=== PATIENT | female | born 1960 | race Caucasian/White ===

== ENCOUNTER 2019-02-24 06:46 | Emergency (ER) | payer MEDICARE, MEDICAID, SELFPAY | END 2019-02-24 09:34 | disposition home or self-care (01) | PROVIDERS: Emergency Provider Family Medicine; Family Provider Nurse Practitioner Family; Visit Provider Family Medicine | DX: N13.2 Hydronephrosis with renal and ureteral calculous obstruction (principal); Z88.0 Allergy status to penicillin | CPT/HCPCS: 36415; 71045; 74176; 80053; 96361; 96374; 96375; 99284; J2270; J2405 ==

== ENCOUNTER 2020-10-13 12:57 | Outpatient (CLI) | payer MEDICARE, MEDICAID, SELFPAY ==
--- NOTE | 2020-10-13 21:12 | ONC CON_ITS ---
Dr. Lemon New Patient Note Patient: Dolly Mandel Unit #: [id number]: 1960 Dicatated By: Parmjit Lemon M.D.Date of Visit: Oct 13, 2020 Onc MED New Patient/Consult Referring Physician: Katelyn Drew Chief Complaint: Breast cancer. History of Present Illness: This is a 60 year-old woman with grade 3 invasive ductal carcinoma of the left breast, by clinical evaluation stage IIA (T2, N0, M0), ER negative/MD positive and HER-2/santa positive. 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 At this point she has some residual function of her forearms and hands, but she is otherwise paraplegic. She required tracheostomy placement in 1997. She had recently been found by her primary care provider to have a palpable mass in the left breast. Ultrasound of the left breast on on 09/14/2020 showed an irregular hypoechoic mass at the 12:00 axis of the left breast 5 cm from the nipple. It correlated with the palpable lump. It measured approximately 2.1 x 2.0 x 2.0 cm and was noted to extend towards the skin surface. The findings were BI-RADS 4, suspicious. On 09/29/2019 when she underwent ultrasound directed biopsy of the left breast. Pathology showed grade 3 invasive ductal carcinoma. The breast prognostic profile showed ER negative at 0% and MD positive at 21%. HER-2/santa was 2+ by IHC. It was positive by FISH with amplification ratio 2.1 and with an average of 5.2 HER-2 copies/cell. She had surgical oncology consultation with Dr. Hardik Peoples on 10/05/2020. At that time she indicated that she was not interested in breast conservation management. She is seen now in regard to recommendations for systemic therapy. Lately she has been feeling more tired than usual. She has very limited activity due to the muscular dystrophy. Her ECOG score is 3. Her appetite has not been good. She says that for the past couple of months nothing as tasted right, and she has been having early satiety. Her weight, though, has been stable. She sometimes has fever. She says it goes up and down. She has some hot flashes and sweating. She tends to feel cold most of the time. She has a little sinus drainage. She has cough associated with suctioning of her tracheostomy. She does not complain of shortness of breath or chest pain. She has no GI or complaints. She does have a history of kidney stones. She says her left leg hurts sometimes. She has no other joint or bone pain. She does not complain of headache or dizziness. She has a little bit of numbness in her hands. She has anxiety/depression. She has medication for it, but she prefers not to take it. Past Medical History: Her medical history includes depression, gastroesophageal reflux disease, history of nephrolithiasis, and muscular dystrophy with paraplegia and ventilator dependent respiratory failure. Past Surgical History: Her surgical/procedural history includes colonoscopy, gastrostomy tube placement and removal, tracheostomy, tubal ligation, ultrasound directed biopsy of the left breast in 2020, and tracheostomy placement in 1997. Medications: traMADol HCl 1 Each (of 50 mg) Tablet Oral four times a day PRN Allergies: Acetaminophen, Amoxicillin, Nitrofurantoin Macrocrystal, [id number], and Silk Tape. Social History: Ms. Mandel is . She is a non-smoker. She does not drink alcohol. Family History: Father age 72 with colon and lung cancer. Mother had diabetes. She at age 96. A brother of pancreatic cancer in his 60s. A sister was treated for breast cancer in 1977. She is currently alive without recurrence at age 75. Review Of Symptoms: Constitutional - She has been feeling tired. She has very limited activity due to her muscular dystrophy. Appetite is not good but her weight is stable. She sometimes has fever. She has some hot flashes and sweating. She tends to feel cold. ECOG score is 3, Eyes - No change in vision, ENMT - No hearing loss or tinnitus. She has a little sinus drainage. No mouth sores. No sore throat. She has difficulty swallowing pills, Hematologic/Lymphatic - No abnormal bruising or bleeding, Respiratory - No shortness of breath. She has cough associated with suctioning her trach. No pleuritic pain or hemoptysis, Cardiovascular - No angina pain. No palpitations, Gastrointestinal - No nausea or vomiting. No heartburn or acid reflux. No diarrhea or constipation. No blood in the stool or black stools, Genitourinary (F) - No dysuria or hematuria. No urinary frequency. No urgency or incontinence, Musculoskeletal - She sometimes has pain in her left leg, Integumentary - No skin rash or other skin problems, Neurologic - No headache or dizziness. She has a little bit of numbness in her hands. No other focal neurologic symptoms. She has weakness due to the muscular dystrophy. She is nonambulatory, Psychiatric - She has anxiety/depression. She does not sleep well. Vital Signs: Performed on Oct 13, 2020 14:00: 5, 0, 20.01, 1.63 sq.m, 66 in, 100 %, 60 /min, 16 /min, 128/72 mm(hg), 98.1 F (LOW), and 124 lbs (HIGH). Physical Examination: Constitutional - She has weakness and she has very limited mobility, Eyes - Sclerae nonicteric. Conjunctivae clear, ENMT - No lesions noted in the oral cavity, Neck - No mass or thyromegaly, Hematologic/Lymphatic - No cervical or clavicular adenopathy, Respiratory - Lungs sound clear. She has limited air movement bilaterally, Cardiovascular - Heart rhythm is regular. There is no murmur, gallop, or rub noted, Breasts - The right breast shows no mass. There is large area of mas/induration in the superior and lateral left breast. There is no axillary adenopathy, Abdomen - Mildly distended but soft. Liver and spleen are not enlarged. There is no abdominal mass or ascites noted and there is no inguinal adenopathy, Extremities - No edema. Pedal pulses are palpable bilaterally, Integumentary - No rashes. No suspicious skin lesions noted, Neurologic - She has almost complete paraplegia with exception of some residual movement in both forearms and hands. Problem List: 1. Grade 3 invasive ductal carcinoma of the left breast, by clinical evaluation stage IIA (T2, N0, M0), ER negative/MD positive and HER-2/santa positive. 2. 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 3. History of nephrolithiasis. 4. Anxiety/depression. 5. Her family history is positive for breast cancer, pancreatic cancer, and colon cancer affecting first-degree relatives, and she is at risk for a transfer to BRCA related cancer. Problems Addressed with this Encounter and Plan: 1. Patient with grade 3 invasive ductal carcinoma of the left breast, by clinical evaluation stage IIA (T2, N0, M0), ER negative/MD positive and HER-2/santa positive. She had presented with a palpable mass in the left breast. The diagnosis was confirmed by ultrasound directed biopsy on 10/05/2020. She has indicated that she is not interested in breast conservation. Her further management is complicated by the underlying muscular dystrophy, which does carry some increased risks for chemotherapy related toxicity, particularly the potential neurotoxicity with a taxane-based chemotherapy. By clinical evaluation, she would just barely meet criteria for neoadjuvant chemotherapy, based on the primary tumor measuring over 2 cm. In her particular situation, I would favor proceeding directly to mastectomy with axillary sentinel biopsy, as that would provide accurate staging and potentially reduce her exposure to systemic therapy. In particular, if she is node negative, we may consider limiting her adjuvant therapy to HER-2/santa targeted therapy/endocrine therapy combination and avoid chemotherapy altogether. If she does require chemotherapy, I would limited it to weekly taxane/Herceptin or perhaps even Xeloda/Herceptin. However, I am going to first confer with one of the breast cancer specialists at [facility], and I will have her seen there for second opinion, as deemed appropriate. 2. She is at risk for having BRCA related cancer. She has indicated that she does not want genetic testing, as she does not have children. However, as it would potentially make her eligible for adjuvant therapy with a PARP inhibitor, I encouraged to reconsider it. Signed By: Parmjit Lemon M.D. <<Signature on File>>
== END 2020-10-13 12:58 | disposition home or self-care (01) ==
LOC: ONCMED 13:08
PROVIDERS: PCP Nurse Practitioner Family; Visit Provider Internal Medicine Medical Oncology
DX: C50.812 Malignant neoplasm of overlapping sites of left female breast (principal); Z17.1 Estrogen receptor negative status [ER-]; G82.21 Paraplegia, complete; Z87.442 Personal history of urinary calculi; F41.9 Anxiety disorder, unspecified; F32.9 Major depressive disorder, single episode, unspecified; Z80.3 Family history of malignant neoplasm of breast; Z80.8 Family history of malignant neoplasm of other organs or systems; Z79.899 Other long term (current) drug therapy
CPT/HCPCS: 99205

== ENCOUNTER 2020-11-27 09:14 | Outpatient (CLI) | payer MEDICARE, MEDICAID, SELFPAY ==
[2020-11-25 09:35] VITALS: BP 148/69; BMI 20.9
--- NOTE | 2020-11-27 13:17 | ONC FU_ITS ---
Dr. Lemon Patient Follow-Up Note Patient: Dolly Mandel Unit #: [id number]: 1960 Dicatated By: Parmjit Lemon M.D.Date of Visit:Nov 27, 2020 Onc Med Follow-up/Prog Note Chief Complaint: Breast cancer. History of Present Illness: This is a 60 year-old woman with grade 3 invasive ductal carcinoma of the left breast, by clinical evaluation stage IIA (T2, N0, M0), ER negative/AZ positive and HER-2/santa positive. 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 She has some residual function of her forearms and hands, but she is otherwise paraplegic. She required tracheostomy placement in 1997. She had recently been found by her primary care provider to have a palpable mass in the left breast. Ultrasound of the left breast on 09/14/2020 showed an irregular hypoechoic mass at the 12:00 axis of the left breast 5 cm from the nipple. It correlated with the palpable lump. It measured approximately 2.1 x 2.0 x 2.0 cm and was noted to extend towards the skin surface. The findings were BI-RADS 4, suspicious. On 09/29/2019 when she underwent ultrasound directed biopsy of the left breast. Pathology showed grade 3 invasive ductal carcinoma. The breast prognostic profile showed ER negative at 0% and AZ positive at 21%. HER-2/santa was 2+ by IHC. It was positive by FISH with amplification ratio 2.1 and with an average of 5.2 HER-2 copies/cell. She had surgical oncology consultation with Dr. Hardik Peoples on 10/05/2020. At that time she indicated that she was not interested in breast conservation management. I had seen her initially on 10/13/2020 in regard to recommendations for systemic therapy. By clinical assessment she would have just had borderline indications for neoadjuvant therapy, and with her known muscular dystrophy, I recommended that she proceed with mastectomy. She then underwent left simple mastectomy with left axillary sentinel lymph node biopsy on 11/05/2020. Pathology showed grade 3 invasive ductal carcinoma measuring 3.2 cm in greatest dimension. All margins were free of tumor. There was no involvement in 5 axillary lymph nodes. The tumor was retested for ER and it was again negative. Her pathologic staging was pT2, pN0. She returns today to discuss further management of her breast cancer. She is still having some discomfort in her shoulder area where Port-A-Cath placement was attempted at the time of her mastectomy. It unfortunately was unsuccessful, so that she does not have any venous access. Her surgery was otherwise uncomplicated and she has otherwise had uneventful recovery. Medications: traMADol HCl 1 Each (of 50 mg) Tablet Oral four times a day PRN Allergies: Acetaminophen, Amoxicillin, Nitrofurantoin Macrocrystal, [id number], and Silk Tape. Vital Signs: Performed on Nov 27, 2020 11:25 Height - 66.00 in Weight - 129 lbs (HIGH) BSA - 1.66 sq.m BMI - 20.82 Temperature - 97.2 F (LOW) Pulse - 61 /min Respiration - 20 /min BP - 132/77 mm(hg) O2 Sat - 99 % Pain - 3 Fatigue - 4 Problem List: 1. Grade 3 invasive ductal carcinoma of the left breast, by clinical evaluation stage IIA (T2, N0, M0), ER negative/AZ positive and HER-2/santa positive. 2. 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 3. History of nephrolithiasis. 4. Anxiety/depression. 5. Her family history is positive for breast cancer, pancreatic cancer, and colon cancer affecting first-degree relatives, and she is at risk for a transfer to BRCA related cancer. Problems Addressed with this Encounter and Plan: 1. Patient with grade 3 invasive ductal carcinoma of the left breast, by clinical evaluation stage IIA (T2, N0, M0), ER negative/AZ positive and HER-2/santa positive. She had presented with a palpable mass in the left breast. The diagnosis was confirmed by ultrasound directed biopsy on 10/05/2020. She has indicated that she is not interested in breast conservation. As she had only borderline indications for neoadjuvant chemotherapy and with her management complicated by her underlying muscular dystrophy, she was recommended to proceed with mastectomy. She then underwent left simple mastectomy and left axillary sentinel lymph node biopsy on 11/05/2020. Her disease was pathologic stage IIA (pT2, pN0, M0). The tumor was again confirmed to be ER negative. She has advised that with a grade 3 primary tumor that is greater than 3 cm and is positive for overexpression of HER-2/santa, she will be at higher than average risk for recurrence for a node-negative breast cancer. She would potentially benefit with adjuvant chemotherapy, particularly with the tumor being HER-2/santa positive. However, she also will be at increased risk for treatment related toxicities, particularly with any taxane-based regimen. I had previously discussed her case with one of the breast cancer specialists at [facility]. Based on that discussion, I reviewed some options for adjuvant therapy. The treatment which would potentially have the most benefit and least toxicity in her situation would be trastuzumab emtansine, though in the setting of adjuvant therapy for node-negative disease, it would an off label usage. I did discuss some other options for nontaxane regimens which could include Herceptin and endocrine therapy alone or Herceptin/Xeloda. Another option which would not require IV access would be lapatinib in combination with capecitabine. None of those regimens, though, have been studied in the adjuvant setting. At this point she is agreeable to proceed with trastuzumab emtansine adjuvant therapy. It would have a risk for liver or cardiac toxicity, but low risk for neutropenia or neuromuscular toxicity. Assuming the medication would be available through insurance coverage or through the pot puller, it will be administered it at a standard dosage of 3.6 mg/kg by IV infusion every 3 weeks for 14 cycles. It will require placement of a venous access device, which may be problematic. I have discussed this with one of the interventional radiologists at [facility], and they will attempt the Port-A-Cath placement as an outpatient next week. 2. She is at risk for having BRCA related cancer. She declined to have genetic testing. Signed By: Parmjit Lemon M.D. <<Signature on File>>
== END 2020-11-27 09:15 | disposition home or self-care (01) ==
PROVIDERS: PCP Nurse Practitioner Family; Visit Provider Internal Medicine Medical Oncology
DX: C50.812 Malignant neoplasm of overlapping sites of left female breast (principal); Z17.1 Estrogen receptor negative status [ER-]; G71.09 Other specified muscular dystrophies; F41.9 Anxiety disorder, unspecified; F32.9 Major depressive disorder, single episode, unspecified; Z80.3 Family history of malignant neoplasm of breast; Z80.0 Family history of malignant neoplasm of digestive organs; Z80.8 Family history of malignant neoplasm of other organs or systems; Z90.12 Acquired absence of left breast and nipple; Z79.811 Long term (current) use of aromatase inhibitors
CPT/HCPCS: 99215

== ENCOUNTER 2020-12-19 08:53 | Outpatient (CLI) | payer MEDICARE, MEDICAID, SELFPAY ==
[2020-11-25 09:35] VITALS: BP 148/69; BMI 20.9
--- NOTE | 2020-12-19 | USCV_ITS ---
Dolly Mandel Age: 60 Gender: F : 1960 Exam Date: 12/19/2020 09:09 Ordering Phys: Parmjit Lemon MD Technologist: Exam Location: [facility] [place] Indication: HIGH RISK MED BP: 120 / 70 HR: 54 Rhythm: Sinus Technical Quality: Technically difficult study MEASUREMENTS (Male / Female) Normal Values 2D ECHO LV Diastolic Diameter PLAX 2.7 cm 4.2 - 5.9 / 3.9 - 5.3 cm LV Systolic Diameter PLAX 1.7 cm IVS Diastolic Thickness 0.8 cm 0.6 - 1.0 / 0.6 - 0.9 cm IVS Systolic Thickness 1.3 cm LVPW Diastolic Thickness 0.8 cm 0.6 - 1.0 / 0.6 - 0.9 cm LVPW Systolic Thickness 1.1 cm LVOT Diameter 1.3 cm LV Ejection Fraction 2D Teich 71.6 % LV Ejection Fraction MOD 2C 64.2 % LV Ejection Fraction 2C AL 63.9 % LA Diameter 2.6 cm FINDINGS Left Ventricle Normal left ventricular size and systolic function, EF 56 %. Segmental wall motion analysis is difficult. No gross wall motion abnormalities were noted. Right Ventricle Right ventricle not well visualized. Right Atrium Right atrium not well visualized. Left Atrium Possibly of normal size Mitral Valve No gross abnormalities were noted Aortic Valve Possibly tricuspid Tricuspid Valve Tricuspid valve not well visualized. Pulmonic Valve Pulmonic valve not well visualized. Pericardium No pericardial effusion. Aorta Normal aortic annulus size. CONCLUSIONS Normal left ventricular size and systolic function, EF 56 %. Segmental wall motion analysis is difficult. No gross wall motion abnormalities were noted. Right atrium and ventricle could not be visualized well Possibly no significant aortic/mitral valvular abnormalities There is no pericardial effusion. Technically difficult study because of the poor ultrasonic window. Dr Oscar Florian MD [facility] (Electronically Signed) Final Date: 19 December 2020 16:45 S
== END 2020-12-19 08:54 | disposition home or self-care (01) ==
LOC: RAD 09:01
PROVIDERS: PCP Nurse Practitioner Family; Visit Provider Internal Medicine Medical Oncology
DX: C50.812 Malignant neoplasm of overlapping sites of left female breast (principal); Z79.899 Other long term (current) drug therapy
CPT/HCPCS: 93308

== ENCOUNTER 2020-12-24 14:43 | Outpatient (CLI) | payer MEDICARE, MEDICAID, SELFPAY ==
[2020-11-25 09:35] VITALS: BP 148/69; BMI 20.9
[2020-12-24 15:51] LABS: Basophils # 0.1 10^3/uL (0.0-0.1); Basophils % 1.2 %; Eosinophils # 0.3 10^3/uL (0.0-0.8); Eosinophils % 3.5 %; Hematocrit 40.2 % (37.0-47.0); Hemoglobin 13.1 g/dL (11.5-15.3); Lymphocytes # 2.3 10^3/uL (0.8-4.8); Lymphocytes % 28.2 %; Mean Corpuscular HGB Conc 32.6 g/dL (30.0-36.0); Mean Corpuscular Hemoglobin 29.4 pg (28.0-34.0); Mean Corpuscular Volume 90.3 fl (81-99); Mean Platelet Volume 11.7 fL (7.4-10.4); Monocytes # 0.7 10^3/uL (0.2-0.9); Monocytes % 8.2 %; Neutrophils # 4.84 10^3/uL (1.8-7.7); Neutrophils % 58.8 %; Nucleated Red Blood Cells % 0 %; Platelet Count 308 10^3/cmm (130-400); Red Blood Count 4.45 10^6/uL (4.1-5.3); Red Cell Distribution Width 13.9 % (12.1-15.1); White Blood Count 8.3 10^3/uL (4.0-10.0)
[2020-12-24 16:08] LABS: Alanine Aminotransferase 13 U/L (0-33); Alkaline Phosphatase 96 IU/L (35-105); Anion Gap 17.1 (5-19); Aspartate Amino Transferase 17 U/L (0-32); Blood Urea Nitrogen 17 mg/dL (8-23); Calcium 9.2 mg/dL (8.5-10.5); Carbon Dioxide 18 mmol/L (22-29); Chloride 107 mmol/L (98-107); Globulin 3.3 g/dL (1.3-4.6); Glomerular Filtration Rate 359.9 mL/min (90-130); Glucose 91 mg/dL (65-115); Osmolality Calculated 287 mOsm/kg (285-295); Potassium 4.1 mmol/L (3.5-5.1); Sodium 138 mmol/L (136-145); Total Bilirubin 1.3 mg/dL (0.15-1.2); Total Protein 7.3 g/dL (6.6-8.7)
== END 2020-12-24 14:44 | disposition home or self-care (01) ==
PROVIDERS: PCP Nurse Practitioner Family; Visit Provider Internal Medicine Medical Oncology
DX: C50.812 Malignant neoplasm of overlapping sites of left female breast (principal); Z17.1 Estrogen receptor negative status [ER-]
CPT/HCPCS: 36591; 80053; 85025

== ENCOUNTER 2020-12-30 06:31 | Outpatient (CLI) | payer MEDICARE, MEDICAID, SELFPAY ==
[2020-11-25 09:35] VITALS: BP 148/69; BMI 20.9
[2020-12-30] MEDS: sodium chloride 0.9% 250 ML 75 ML IV (15:00)
[2020-12-30 16:00] LABS: Hepatitis B Surface Antigen Non-Reactive (Nonreactive)
[2020-12-30 16:33] LABS: Hepatitis A Antibody IgM Non-Reactive (Nonreactive); Hepatitis B Core AB, Total Non-Reactive (Nonreactive); Hepatitis B Surface AB 3.5 (11.5-1000); Hepatitis C Virus Antibody Non-Reactive (Nonreactive)
--- NOTE | 2021-01-02 10:00 | ONC FU_ITS ---
Dr. Lemon Patient Follow-Up Note Patient: Dolly Mandel Unit #: [id number]: 1960 Dicatated By: Parmjit Lemon M.D.Date of Visit:Dec 30, 2020 Onc Med Follow-up/Prog Note Chief Complaint: Breast cancer. History of Present Illness: This is a 60 year-old woman with grade 3 invasive ductal carcinoma of the left breast, by clinical evaluation stage IIA (T2, N0, M0), ER negative/NE positive and HER-2/santa positive. 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 She has some residual function of her forearms and hands, but she is otherwise paraplegic. She required tracheostomy placement in 1997. She had recently been found by her primary care provider to have a palpable mass in the left breast. Ultrasound of the left breast on 09/14/2020 showed an irregular hypoechoic mass at the 12:00 axis of the left breast 5 cm from the nipple. It correlated with the palpable lump. It measured approximately 2.1 x 2.0 x 2.0 cm and was noted to extend towards the skin surface. The findings were BI-RADS 4, suspicious. On 09/29/2019 when she underwent ultrasound directed biopsy of the left breast. Pathology showed grade 3 invasive ductal carcinoma. The breast prognostic profile showed ER negative at 0% and NE positive at 21%. HER-2/santa was 2+ by IHC. It was positive by FISH with amplification ratio 2.1 and with an average of 5.2 HER-2 copies/cell. She had surgical oncology consultation with Dr. Hardik Peoples on 10/05/2020. At that time she indicated that she was not interested in breast conservation management. I had seen her initially on 10/13/2020 in regard to recommendations for systemic therapy. By clinical assessment she would have just had borderline indications for neoadjuvant therapy, and with her known muscular dystrophy, I recommended that she proceed with mastectomy. She then underwent left simple mastectomy with left axillary sentinel lymph node biopsy on 11/05/2020. Pathology showed grade 3 invasive ductal carcinoma measuring 3.2 cm in greatest dimension. All margins were free of tumor. There was no involvement in 5 axillary lymph nodes. The tumor was retested for ER and it was again negative. Her pathologic staging was pT2, pN0. I had seen her for a follow-up visit on 11/27/2020. With HER-2/santa positive disease and a T2 primary tumor, I felt that she should be given adjuvant chemotherapy. With the underlying muscular dystrophy, I was very concerned about the potential toxicities associated with use of any taxane agent. Based on discussion of plan of the breast cancer specialist at [facility], she was recommended to undergo adjuvant therapy with Kadcyla. She subsequently underwent placement of Port-A-Cath venous access device. She returns now to begin her 1st cycle of treatment. Medications: Ondansetron 1 Tablet (of 4 mg) Tablet Dispersable Oral daily PRN, traMADol HCl 1 Each (of 50 mg) Tablet Oral four times a day PRN Allergies: Acetaminophen, Amoxicillin, Nitrofurantoin Macrocrystal, Cvjsokbmhspop-RJ-JW, and Silk Tape. Vital Signs: Performed on Dec 30, 2020 13:39 Height - 66.00 in Weight - 129 lbs BSA - 1.66 sq.m BMI - 20.82 Temperature - 97.9 F (LOW) Pulse - 85 /min Respiration - 18 /min BP - 124/74 mm(hg) O2 Sat - 99 % Pain - 1 Fatigue - 3 Problem List: 1. Grade 3 invasive ductal carcinoma of the left breast, by clinical evaluation stage IIA (T2, N0, M0), ER negative/NE positive and HER-2/santa positive. 2. 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 3. History of nephrolithiasis. 4. Anxiety/depression. 5. Her family history is positive for breast cancer, pancreatic cancer, and colon cancer affecting first-degree relatives, and she is at risk for a transfer to BRCA related cancer. Problems Addressed with this Encounter and Plan: 1. Patient with grade 3 invasive ductal carcinoma of the left breast, by clinical evaluation stage IIA (T2, N0, M0), ER negative/NE positive and HER-2/santa positive. She had presented with a palpable mass in the left breast. The diagnosis was confirmed by ultrasound directed biopsy on 10/05/2020. She has indicated that she is not interested in breast conservation. As she had only borderline indications for neoadjuvant chemotherapy and with her management complicated by her underlying muscular dystrophy, she was recommended to proceed with mastectomy. She then underwent left simple mastectomy and left axillary sentinel lymph node biopsy on 11/05/2020. Her disease was pathologic stage IIA (pT2, pN0, M0). The tumor was again confirmed to be ER negative. She has advised that with a grade 3 primary tumor that is greater than 3 cm and is positive for overexpression of HER-2/santa, she will be at higher than average risk for recurrence for a node-negative breast cancer. She would potentially benefit with adjuvant chemotherapy, particularly with the tumor being HER-2/santa positive. However, she also will be at increased risk for treatment related toxicities, particularly with any taxane-based regimen. I had previously discussed her case with one of the breast cancer specialists at [facility]. Based on that discussion, she was recommended to undergo adjuvant therapy with trastuzumab emtansine, as it was felt to have the most potential benefit and least toxicity in her situation. She will now begin a course of adjuvant therapy with trastuzumab emtansine at a standard dosage of 3.6 mg/kg by IV infusion. She is aware that this represents an off label use of the medication. I reviewed potential side effects which may include fatigue, nausea, and low blood counts, among others. She is aware that there is risk for cardiac, hepatic, and pulmonary toxicity and that there will still be some risk of neuropathy. Any of these toxicities, though, occur at a low frequency. Her baseline echocardiogram that showed normal left ventricular ejection fraction at 56%. Her hepatitis screening is negative. She will proceed with treatment as above. Blood counts will be monitored weekly. She will be scheduled for a follow-up visit in 3 weeks. 2. She is at risk for having BRCA related cancer. She declined to have genetic testing. Signed By: Parmjit Lemon M.D. <<Signature on File>>
== END 2020-12-30 06:32 | disposition home or self-care (01) ==
LOC: ONCMED 06:32
PROVIDERS: PCP Nurse Practitioner Family; Visit Provider Internal Medicine Medical Oncology
DX: Z51.11 Encounter for antineoplastic chemotherapy (principal); C50.812 Malignant neoplasm of overlapping sites of left female breast; Z17.1 Estrogen receptor negative status [ER-]; G82.21 Paraplegia, complete; Z87.442 Personal history of urinary calculi; F41.9 Anxiety disorder, unspecified; F32.9 Major depressive disorder, single episode, unspecified; Z80.3 Family history of malignant neoplasm of breast; Z80.0 Family history of malignant neoplasm of digestive organs; Z79.899 Other long term (current) drug therapy; Z01.89 Encounter for other specified special examinations; Z20.5 Contact with and (suspected) exposure to viral hepatitis
CPT/HCPCS: 86705; 86706; 86709; 86803; 87340; 96413; 99215; J7050; J9354

== ENCOUNTER 2021-01-20 07:59 | Outpatient (CLI) | payer MEDICARE, MEDICAID, SELFPAY ==
[2020-11-25 09:35] VITALS: BP 148/69; BMI 20.9
[2021-01-20 08:36] LABS: Basophils # 0.1 10^3/uL (0.0-0.1); Basophils % 1.1 %; Eosinophils # 0.3 10^3/uL (0.0-0.8); Eosinophils % 3.5 %; Hematocrit 38.1 % (37.0-47.0); Hemoglobin 12.8 g/dL (11.5-15.3); Lymphocytes # 2.1 10^3/uL (0.8-4.8); Lymphocytes % 28.6 %; Mean Corpuscular HGB Conc 33.6 g/dL (30.0-36.0); Mean Corpuscular Hemoglobin 29.6 pg (28.0-34.0); Mean Platelet Volume 10.6 fL (7.4-10.4); Monocytes # 0.5 10^3/uL (0.2-0.9); Monocytes % 7.5 %; Neutrophils # 4.23 10^3/uL (1.8-7.7); Nucleated Red Blood Cells % 0 %; Platelet Count 284 10^3/cmm (130-400); Red Blood Count 4.33 10^6/uL (4.1-5.3); Red Cell Distribution Width 14.5 % (12.1-15.1); White Blood Count 7.2 10^3/uL (4.0-10.0)
[2021-01-20 09:06] LABS: Alanine Aminotransferase 21 U/L (0-33); Albumin Level 3.8 g/dL (3.5-5.2); Alkaline Phosphatase 112 IU/L (35-105); Anion Gap 16.2 (5-19); Aspartate Amino Transferase 28 U/L (0-32); Blood Urea Nitrogen 15 mg/dL (8-23); Calcium 8.9 mg/dL (8.5-10.5); Carbon Dioxide 20 mmol/L (22-29); Chloride 107 mmol/L (98-107); Globulin 3.7 g/dL (1.3-4.6); Glomerular Filtration Rate 359.9 mL/min (90-130); Glucose 86 mg/dL (65-115); Osmolality Calculated 290 mOsm/kg (285-295); Potassium 3.2 mmol/L (3.5-5.1); Sodium 140 mmol/L (136-145); Total Protein 7.5 g/dL (6.6-8.7)
[2021-01-20] MEDS: sodium chloride 0.9% 250 ML 75 ML IV (10:20)
[2021-01-20] MEDS: potassium chloride premix 100 ML 50 MEQ IV (10:20)
--- NOTE | 2021-01-20 10:40 | ONC FU_ITS ---
Dr. Lemon Patient Follow-Up Note Patient: Dolly Mandel Unit #: [id number]: 1960 Dicatated By: Parmjit Lemon M.D.Date of Visit:Jan 20, 2021 Onc Med Follow-up/Prog Note Chief Complaint: Breast cancer. 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 She has some residual function of her forearms and hands, but she is otherwise paraplegic. She required tracheostomy placement in 1997. She had recently been found by her primary care provider to have a palpable mass in the left breast. Ultrasound of the left breast on 09/14/2020 showed an irregular hypoechoic mass at the 12:00 axis of the left breast 5 cm from the nipple. It correlated with the palpable lump. It measured approximately 2.1 x 2.0 x 2.0 cm and was noted to extend towards the skin surface. The findings were BI-RADS 4, suspicious. On 09/29/2019 when she underwent ultrasound directed biopsy of the left breast. Pathology showed grade 3 invasive ductal carcinoma. The breast prognostic profile showed ER negative at 0% and MO positive at 21%. HER-2/santa was 2+ by IHC. It was positive by FISH with amplification ratio 2.1 and with an average of 5.2 HER-2 copies/cell. She had surgical oncology consultation with Dr. Hardik Peoples on 10/05/2020. At that time she indicated that she was not interested in breast conservation management. I had seen her initially on 10/13/2020 in regard to recommendations for systemic therapy. By clinical assessment she would have just had borderline indications for neoadjuvant therapy, and with her known muscular dystrophy, I recommended that she proceed with mastectomy. She then underwent left simple mastectomy with left axillary sentinel lymph node biopsy on 11/05/2020. Pathology showed grade 3 invasive ductal carcinoma measuring 3.2 cm in greatest dimension. All margins were free of tumor. There was no involvement in 5 axillary lymph nodes. The tumor was retested for ER and it was again negative. Her pathologic staging was pT2, pN0. I had seen her for a follow-up visit on 11/27/2020. With HER-2/santa positive disease and a T2 primary tumor, I felt that she should be given adjuvant chemotherapy. With the underlying muscular dystrophy and with the potential neuro muscular toxicities associated with use of any taxane agent, she was recommended to undergo adjuvant therapy with trastuzumab emtansine. Her medical illnesses, in addition to the breast cancer, include limb/girdle muscular dystrophy and anxiety/depression. She has a history of nephrolithiasis. She has a significant family history for cancer. She is a non-smoker. INTERIM HISTORY: She began cycle 1 of adjuvant therapy with trastuzumab emtansine on 12/30/2020. She tolerated the initial infusion without acute toxicity. She is seen for a scheduled visit. She says she is not feeling bad. She has limited mobility/activity with the muscular dystrophy, but that is unchanged. ECOG score is 3. She has good appetite. She has not had fever. She has had some hot flashes/sweating, which is new. She says her stomach felt a little queasy 2 days after her treatment, but that resolved with medication. She says her eyes have been blurry and they have been burning a little bit. X1/2 felt like they are on fire. She has a little sinus drainage. She has not had sore mouth or throat. Her breathing has been okay. She does have some cough, but nothing unusual. She does not complain of chest pain. Bowel function remains adequate. She says she keeps a bladder infection chronically. She has not had very much pain. She has a little bit of headache. She does not complain of headache. She has not been having any numbness or tingling. She complains that her face has been breaking out. She has been having more problems with depression. She is being seen at [facility] weekly. In the past she has had very poor tolerance for antidepressant medication. Medications: Ondansetron 1 Tablet (of 4 mg) Tablet Dispersable Oral daily PRN, traMADol HCl 1 Each (of 50 mg) Tablet Oral four times a day PRN Allergies: Acetaminophen, Amoxicillin, Nitrofurantoin Macrocrystal, [id number], and Silk Tape. Vital Signs: Performed on Jan 20, 2021 09:40 Height - 66.00 in Temperature - 98.0 F (LOW) Pulse - 99 /min Respiration - 18 /min BP - 165/83 mm(hg) (HIGH) O2 Sat - 93 % (LOW) Pain - 3 Fatigue - 6 Physical Examination: Constitutional - She appears generally weak, and she has very limited mobility. She does not appear acutely ill, Eyes - Sclerae nonicteric. Conjunctivae clear, ENMT - No lesions noted in the oral cavity, Hematologic/Lymphatic - No cervical, clavicular, or axillary adenopathy, Respiratory - Lungs show coarse breath sounds and somewhat limited air movement bilaterally, Cardiovascular - Heart rhythm is regular. There is no murmur, gallop, or rub noted, Abdomen - Soft. Liver and spleen are not enlarged. There is no abdominal mass or ascites noted and there is no inguinal adenopathy, Extremities - No edema. Pedal pulses are palpable bilaterally, Integumentary - She has developed a mild skin eruption in a malar distribution, Neurologic - She has almost complete paraplegia with exception of some residual movement in both forearms and hands. Lab/Imaging: Test performed on Jan 20, 2021 08:17 Sodium 140 mmol/L Potassium 3.2 mmol/L Chloride 107 mmol/L CO2 20 mmol/L Anion Gap 16.2 BUN 15 mg/dL Creatinine 0.2 mg/dL Cr Clearance (Est) 269.4100 mL/min eGFR 359.9 mL/min Glucose 86 mg/dL Osmolality - Calculated 290 mOsm/kg Calcium 8.9 mg/dL Protein, Total 7.5 g/dL Albumin 3.8 g/dL Globulin 3.7 g/dL Bilirubin, Total 1.0 mg/dL ALT (SGPT) 21 U/L AST (SGOT) 28 U/L Alkaline Phosphatase 112 IU/L WBC 7.2 10 3/uL RBC 4.33 10 6/uL HGB 12.8 g/dL HCT 38.1 % MCV 88.0 fl MCH 29.6 pg MCHC 33.6 g/dL RDW 14.5 % Platelet Count 284 10 3/cmm MPV 10.6 fL Neutrophils 4.23 10 3/uL Lymphocytes 2.1 10 3/uL Monocytes 0.5 10 3/uL Eosinophils 0.3 10 3/uL Basophils 0.1 10 3/uL Neutrophil % 59.0 % Lymphocyte % 28.6 % Monocyte % 7.5 % Eosinophil % 3.5 % Basophils % 1.1 % NRBC % 0 % Problem List: 1. Grade 3 invasive ductal carcinoma of the left breast, by clinical evaluation stage IIA (T2, N0, M0), ER negative/MO positive and HER-2/santa positive. 2. 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 3. History of nephrolithiasis. 4. Anxiety/depression. 5. Her family history is positive for breast cancer, pancreatic cancer, and colon cancer affecting first-degree relatives, and she is at risk for a BRCA related cancer. Problems Addressed with this Encounter and Plan: 1. Patient with grade 3 invasive ductal carcinoma of the left breast, by clinical evaluation stage IIA (T2, N0, M0), ER negative/MO positive and HER-2/santa positive. She had presented with a palpable mass in the left breast. The diagnosis was confirmed by ultrasound directed biopsy on 10/05/2020. She has indicated that she is not interested in breast conservation. As she had only borderline indications for neoadjuvant chemotherapy and with her management complicated by her underlying muscular dystrophy, she was recommended to proceed with mastectomy. She then underwent left simple mastectomy and left axillary sentinel lymph node biopsy on 11/05/2020. Her disease was pathologic stage IIA (pT2, pN0, M0). The tumor was again confirmed to be ER negative. She has advised that with a grade 3 primary tumor that is greater than 3 cm and is positive for overexpression of HER-2/santa, she will be at higher than average risk for recurrence for a node-negative breast cancer. She would potentially benefit with adjuvant chemotherapy, particularly with the tumor being HER-2/santa positive. However, she also will be at increased risk for treatment related toxicities, particularly with any taxane-based regimen. I had previously discussed her case with one of the breast cancer specialists at [facility]. Based on that discussion, she was recommended to undergo adjuvant therapy with trastuzumab emtansine, as it was felt to have the most potential benefit and least toxicity in her situation. She began adjuvant therapy with trastuzumab emtansine on 12/30/2020. It was administered at a standard dosage of 3.6 mg/kg by IV infusion. Side effects thus far have been limited to some hot flashes/sweating, mild nausea, eye irritation, and a mild malar skin eruption. Overall, she appears to be tolerating the treatment well. She will proceed now with cycle 2 of trastuzumab emtansine. The dosage remains the same. She returns in 3 weeks. In the meantime, she is recommended to use artificial tears for the eye irritation and she will be given a prescription for ketoconazole cream for the skin eruption. 2. She has hypokalemia. She will be given IV potassium replacement with her treatment today and she will then start on a liquid oral potassium supplement at 10 mEq daily. Signed By: Parmjit Lemon M.D. <<Signature on File>>
== END 2021-01-20 08:00 | disposition home or self-care (01) ==
PROVIDERS: PCP Nurse Practitioner Family; Visit Provider Internal Medicine Medical Oncology
DX: Z51.11 Encounter for antineoplastic chemotherapy (principal); C50.812 Malignant neoplasm of overlapping sites of left female breast; Z17.1 Estrogen receptor negative status [ER-]; G71.09 Other specified muscular dystrophies; G82.21 Paraplegia, complete; F41.9 Anxiety disorder, unspecified; F32.9 Major depressive disorder, single episode, unspecified; Z80.3 Family history of malignant neoplasm of breast; Z87.442 Personal history of urinary calculi; Z79.899 Other long term (current) drug therapy; Z90.12 Acquired absence of left breast and nipple; Z92.21 Personal history of antineoplastic chemotherapy
CPT/HCPCS: 80053; 85025; 96366; 96367; 96413; 99215; J3480; J7050; J9354

== ENCOUNTER 2021-02-10 08:20 | Outpatient (CLI) | payer MEDICARE, MEDICAID, SELFPAY ==
[2020-11-25 09:35] VITALS: BP 148/69; BMI 20.9
[2021-02-10 08:55] LABS: Basophils # 0.1 10^3/uL (0.0-0.1); Basophils % 1.5 %; Eosinophils # 0.2 10^3/uL (0.0-0.8); Eosinophils % 3.2 %; Hematocrit 38.3 % (37.0-47.0); Hemoglobin 12.7 g/dL (11.5-15.3); Lymphocytes % 30.8 %; Mean Corpuscular HGB Conc 33.2 g/dL (30.0-36.0); Mean Corpuscular Hemoglobin 29.3 pg (28.0-34.0); Mean Corpuscular Volume 88.2 fl (81-99); Mean Platelet Volume 10.6 fL (7.4-10.4); Monocytes # 0.6 10^3/uL (0.2-0.9); Monocytes % 9.2 %; Neutrophils # 3.57 10^3/uL (1.8-7.7); Nucleated Red Blood Cells % 0 %; Platelet Count 246 10^3/cmm (130-400); Red Blood Count 4.34 10^6/uL (4.1-5.3); Red Cell Distribution Width 15.2 % (12.1-15.1); White Blood Count 6.5 10^3/uL (4.0-10.0)
[2021-02-10 09:20] LABS: Alanine Aminotransferase 16 U/L (0-33); Albumin Level 3.8 g/dL (3.5-5.2); Alkaline Phosphatase 98 IU/L (35-105); Anion Gap 20.4 (5-19); Aspartate Amino Transferase 28 U/L (0-32); Blood Urea Nitrogen 10 mg/dL (8-23); Calcium 8.7 mg/dL (8.5-10.5); Carbon Dioxide 16 mmol/L (22-29); Chloride 110 mmol/L (98-107); Globulin 3.4 g/dL (1.3-4.6); Glomerular Filtration Rate 359.9 mL/min (90-130); Glucose 83 mg/dL (65-115); Osmolality Calculated 294 mOsm/kg (285-295); Potassium 3.4 mmol/L (3.5-5.1); Sodium 143 mmol/L (136-145); Total Bilirubin 1.3 mg/dL (0.15-1.2); Total Protein 7.2 g/dL (6.6-8.7)
[2021-02-10] MEDS: sodium chloride 0.9% 250 ML 75 ML IV (10:40)
== END 2021-02-10 08:21 | disposition home or self-care (01) ==
PROVIDERS: PCP Nurse Practitioner Family; Visit Provider Internal Medicine Medical Oncology
DX: Z51.11 Encounter for antineoplastic chemotherapy (principal); C50.812 Malignant neoplasm of overlapping sites of left female breast; Z17.1 Estrogen receptor negative status [ER-]; G71.09 Other specified muscular dystrophies; G82.21 Paraplegia, complete; F41.9 Anxiety disorder, unspecified; F32.9 Major depressive disorder, single episode, unspecified; Z80.3 Family history of malignant neoplasm of breast; Z87.442 Personal history of urinary calculi; Z79.899 Other long term (current) drug therapy
CPT/HCPCS: 80053; 85025; 96413; 99215; J7050; J9354

== ENCOUNTER 2021-03-03 13:13 | Outpatient (CLI) | payer MEDICARE, MEDICAID, SELFPAY ==
[2020-11-25 09:35] VITALS: BP 148/69; BMI 20.9
[2021-03-03 14:02] LABS: Basophils # 0.1 10^3/uL (0.0-0.1); Basophils % 1.1 %; Eosinophils # 0.2 10^3/uL (0.0-0.8); Eosinophils % 2.8 %; Hematocrit 36.6 % (37.0-47.0); Hemoglobin 11.7 g/dL (11.5-15.3); Lymphocytes # 1.6 10^3/uL (0.8-4.8); Lymphocytes % 24.8 %; Mean Corpuscular Hemoglobin 28.7 pg (28.0-34.0); Mean Corpuscular Volume 89.7 fl (81-99); Mean Platelet Volume 10.7 fL (7.4-10.4); Monocytes # 0.8 10^3/uL (0.2-0.9); Monocytes % 12.3 %; Neutrophils # 3.83 10^3/uL (1.8-7.7); Neutrophils % 58.8 %; Nucleated Red Blood Cells % 0 %; Platelet Count 198 10^3/cmm (130-400); Red Blood Count 4.08 10^6/uL (4.1-5.3); Red Cell Distribution Width 16.1 % (12.1-15.1); White Blood Count 6.5 10^3/uL (4.0-10.0)
[2021-03-03 14:23] LABS: Alanine Aminotransferase 9 U/L (0-33); Albumin Level 3.5 g/dL (3.5-5.2); Alkaline Phosphatase 87 IU/L (35-105); Anion Gap 14.6 (5-19); Aspartate Amino Transferase 24 U/L (0-32); Blood Urea Nitrogen 10 mg/dL (8-23); Calcium 8.7 mg/dL (8.5-10.5); Carbon Dioxide 20 mmol/L (22-29); Chloride 108 mmol/L (98-107); Globulin 3.6 g/dL (1.3-4.6); Glucose 82 mg/dL (65-115); Osmolality Calculated 286 mOsm/kg (285-295); Potassium 3.6 mmol/L (3.5-5.1); Sodium 139 mmol/L (136-145); Total Protein 7.1 g/dL (6.6-8.7)
[2021-03-03 14:31] LABS: Glomerular Filtration Rate 798.3 mL/min (90-130)
== END 2021-03-03 13:14 | disposition home or self-care (01) ==
LOC: ONCMED 13:16
PROVIDERS: PCP Nurse Practitioner Family; Visit Provider Nurse Practitioner Family
DX: Z51.11 Encounter for antineoplastic chemotherapy (principal); C50.812 Malignant neoplasm of overlapping sites of left female breast; Z17.1 Estrogen receptor negative status [ER-]; G71.09 Other specified muscular dystrophies; G82.21 Paraplegia, complete; F41.9 Anxiety disorder, unspecified; F32.9 Major depressive disorder, single episode, unspecified; Z80.3 Family history of malignant neoplasm of breast; Z87.442 Personal history of urinary calculi; Z79.899 Other long term (current) drug therapy
CPT/HCPCS: 80053; 85025; 96413; 99215; J7050; J9354

== ENCOUNTER 2021-03-24 12:52 | Outpatient (CLI) | payer MEDICARE, MEDICAID, SELFPAY ==
[2020-11-25 09:35] VITALS: BP 148/69; BMI 20.9
[2021-03-24 13:49] LABS: Basophils # 0.1 10^3/uL (0.0-0.1); Basophils % 1.7 %; Eosinophils # 0.2 10^3/uL (0.0-0.8); Eosinophils % 3.6 %; Hematocrit 36.4 % (37.0-47.0); Hemoglobin 11.7 g/dL (11.5-15.3); Lymphocytes # 1.8 10^3/uL (0.8-4.8); Lymphocytes % 27.6 %; Mean Corpuscular HGB Conc 32.1 g/dL (30.0-36.0); Mean Corpuscular Hemoglobin 29.1 pg (28.0-34.0); Mean Corpuscular Volume 90.5 fl (81-99); Mean Platelet Volume 10.7 fL (7.4-10.4); Monocytes # 0.6 10^3/uL (0.2-0.9); Monocytes % 8.4 %; Neutrophils # 3.86 10^3/uL (1.8-7.7); Neutrophils % 58.2 %; Nucleated Red Blood Cells % 0 %; Platelet Count 169 10^3/cmm (130-400); Red Blood Count 4.02 10^6/uL (4.1-5.3); Red Cell Distribution Width 16.8 % (12.1-15.1); White Blood Count 6.6 10^3/uL (4.0-10.0)
[2021-03-24 14:01] LABS: Alanine Aminotransferase 12 U/L (0-33); Albumin Level 3.5 g/dL (3.5-5.2); Alkaline Phosphatase 95 IU/L (35-105); Anion Gap 16.4 (5-19); Aspartate Amino Transferase 28 U/L (0-32); Blood Urea Nitrogen 12 mg/dL (8-23); Calcium 8.8 mg/dL (8.5-10.5); Carbon Dioxide 18 mmol/L (22-29); Chloride 110 mmol/L (98-107); Globulin 3.5 g/dL (1.3-4.6); Glucose 84 mg/dL (65-115); Osmolality Calculated 291 mOsm/kg (285-295); Potassium 3.4 mmol/L (3.5-5.1); Sodium 141 mmol/L (136-145); Total Bilirubin 2.1 mg/dL (0.15-1.2)
[2021-03-24 14:03] LABS: Glomerular Filtration Rate 798.3 mL/min (90-130)
== END 2021-03-24 12:53 | disposition home or self-care (01) ==
LOC: ONCMED 12:55
PROVIDERS: PCP Nurse Practitioner Family; Visit Provider Nurse Practitioner Family
DX: Z51.11 Encounter for antineoplastic chemotherapy (principal); C50.812 Malignant neoplasm of overlapping sites of left female breast; Z17.1 Estrogen receptor negative status [ER-]; G71.09 Other specified muscular dystrophies; G82.21 Paraplegia, complete; Z80.3 Family history of malignant neoplasm of breast; Z79.899 Other long term (current) drug therapy
CPT/HCPCS: 80053; 85025; 96413; 99215; J7050; J9354

== ENCOUNTER 2021-04-14 11:50 | Outpatient (CLI) | payer MEDICARE, MEDICAID, SELFPAY ==
[2020-11-25 09:35] VITALS: BP 148/69; BMI 20.9
[2021-04-14 12:46] LABS: Basophils # 0.1 10^3/uL (0.0-0.1); Basophils % 1.4 %; Eosinophils # 0.2 10^3/uL (0.0-0.8); Eosinophils % 3.4 %; Hematocrit 36.8 % (37.0-47.0); Hemoglobin 11.4 g/dL (11.5-15.3); Lymphocytes # 1.7 10^3/uL (0.8-4.8); Lymphocytes % 26.7 %; Mean Corpuscular Hemoglobin 27.9 pg (28.0-34.0); Mean Corpuscular Volume 90.2 fl (81-99); Mean Platelet Volume 10.9 fL (7.4-10.4); Monocytes # 0.7 10^3/uL (0.2-0.9); Monocytes % 10.1 %; Neutrophils # 3.79 10^3/uL (1.8-7.7); Neutrophils % 58.1 %; Nucleated Red Blood Cells % 0 %; Platelet Count 186 10^3/cmm (130-400); Red Blood Count 4.08 10^6/uL (4.1-5.3); Red Cell Distribution Width 16.6 % (12.1-15.1); White Blood Count 6.5 10^3/uL (4.0-10.0)
[2021-04-14 12:55] LABS: Alanine Aminotransferase 13 U/L (0-33); Albumin Level 3.5 g/dL (3.5-5.2); Alkaline Phosphatase 88 IU/L (35-105); Anion Gap 15.4 (5-19); Aspartate Amino Transferase 28 U/L (0-32); Blood Urea Nitrogen 11 mg/dL (8-23); Calcium 9.5 mg/dL (8.5-10.5); Carbon Dioxide 19 mmol/L (22-29); Chloride 109 mmol/L (98-107); Globulin 3.6 g/dL (1.3-4.6); Glucose 96 mg/dL (65-115); Osmolality Calculated 289 mOsm/kg (285-295); Potassium 3.4 mmol/L (3.5-5.1); Sodium 140 mmol/L (136-145); Total Bilirubin 2.2 mg/dL (0.15-1.2); Total Protein 7.1 g/dL (6.6-8.7)
[2021-04-14 13:00] LABS: Glomerular Filtration Rate 798.3 mL/min (90-130)
[2021-04-14] MEDS: sodium chloride 0.9% 250 ML IV (14:20)
--- NOTE | 2021-04-14 17:36 | ONC FU_ITS ---
Dr. Lemon Patient Follow-Up Note Patient: Dolly Mandel Unit #: [id number]: 1960 Dicatated By: Parmjit Lemon M.D.Date of Visit:Apr 14, 2021 Onc Med Follow-up/Prog Note Chief Complaint: Breast cancer. History of Present Illness: This is a 61 year-old woman with grade 3 invasive ductal carcinoma of the left breast, by clinical evaluation stage IIA (T2, N0, M0), ER negative/WI positive and HER-2/santa positive. 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 She has some residual function of her forearms and hands, but she is otherwise paraplegic. She required tracheostomy placement in 1997. She had recently been found by her primary care provider to have a palpable mass in the left breast. Ultrasound of the left breast on 09/14/2020 showed an irregular hypoechoic mass at the 12:00 axis of the left breast 5 cm from the nipple. It correlated with the palpable lump. It measured approximately 2.1 x 2.0 x 2.0 cm and was noted to extend towards the skin surface. The findings were BI-RADS 4, suspicious. On 09/29/2019 when she underwent ultrasound directed biopsy of the left breast. Pathology showed grade 3 invasive ductal carcinoma. The breast prognostic profile showed ER negative at 0% and WI positive at 21%. HER-2/santa was 2+ by IHC. It was positive by FISH with amplification ratio 2.1 and with an average of 5.2 HER-2 copies/cell. She had surgical oncology consultation with Dr. Hardik Peoples on 10/05/2020. At that time she indicated that she was not interested in breast conservation management. I had seen her initially on 10/13/2020 in regard to recommendations for systemic therapy. By clinical assessment she would have just had borderline indications for neoadjuvant therapy, and with her known muscular dystrophy, I recommended that she proceed with mastectomy. She then underwent left simple mastectomy with left axillary sentinel lymph node biopsy on 11/05/2020. Pathology showed grade 3 invasive ductal carcinoma measuring 3.2 cm in greatest dimension. All margins were free of tumor. There was no involvement in 5 axillary lymph nodes. The tumor was retested for ER and it was again negative. Her pathologic staging was pT2, pN0. I had seen her for a follow-up visit on 11/27/2020. With HER-2/santa positive disease and a T2 primary tumor, I felt that she should be given adjuvant chemotherapy. With the underlying muscular dystrophy and with the potential neuro muscular toxicities associated with use of any taxane agent, she was recommended to undergo adjuvant therapy with trastuzumab emtansine. Her medical illnesses, in addition to the breast cancer, include limb/girdle muscular dystrophy and anxiety/depression. She has a history of nephrolithiasis. She has a significant family history for cancer. She is a non-smoker. INTERIM HISTORY: She began cycle 1 of adjuvant therapy with trastuzumab emtansine on 12/30/2020. She tolerated the initial infusion without acute toxicity. She was then able to continue treatment at 3-week intervals. As of 03/24/2021 she had completed her 5th cycle. She is seen for a scheduled visit. She complains that she is tired all the time, and that has been getting gradually worse. She has very limited activity. ECOG score is 3. Her appetite has been okay. She feels that she is gaining weight. She has not had fever, night sweats, or hot flashes. She does complain that she is thirsty all the time. Last week she developed swelling in her left ankle, but that has subsequently improved. She has been having pain in both thighs and legs. She has some sinus drainage. She has not had sore mouth or throat. She does have cough, and when she suctions she has noticed some blood in the aspirate. She says she cannot hold her breath as long now. She does not complain of chest pain. She has just occasional nausea. She has constipation, but she is managing it adequately with MiraLAX. Bladder function has been okay. She has headache for about 4 days after her treatment. She says it goes away. She does not complain of dizziness. She is having some numbness in her fingers and in her lips and she also complains that her hands shake a little bit. Medications: Ondansetron 1 Tablet (of 4 mg) Tablet Dispersable Oral daily PRN, traMADol HCl 1 Each (of 50 mg) Tablet Oral four times a day PRN Allergies: Acetaminophen, Amoxicillin, Nitrofurantoin Macrocrystal, [id number], and Silk Tape. Vital Signs: Performed on Apr 14, 2021 13:33 Height - 66.00 in Temperature - 98.0 F (LOW) Pulse - 82 /min Respiration - 20 /min BP - 124/75 mm(hg) O2 Sat - 96 % Pain - 7 Fatigue - 8 Physical Examination: Constitutional - She appears generally weak, Eyes - Sclerae nonicteric. Conjunctivae clear, ENMT - No lesions noted in the oral cavity, Hematologic/Lymphatic - No cervical, clavicular, or axillary adenopathy, Respiratory - Lungs sound clear but with limited air movement bilaterally, Cardiovascular - Heart rhythm is regular. There is no murmur, gallop, or rub noted, Abdomen - Mildly distended and tympanic. Liver and spleen are not enlarged. There is no abdominal mass or ascites noted and there is no inguinal adenopathy, Extremities - There is mild lower extremity edema, a little worse on the left, Neurologic - She has almost complete paraplegia with exception of some residual movement in both forearms and hands. Lab/Imaging: Test performed on Apr 14, 2021 12:22 Sodium 140 mmol/L Potassium 3.4 mmol/L Chloride 109 mmol/L CO2 19 mmol/L Anion Gap 15.4 BUN 11 mg/dL Creatinine 0.1 mg/dL Cr Clearance (Est) 531.9100 mL/min eGFR 798.3 mL/min Glucose 96 mg/dL Osmolality - Calculated 289 mOsm/kg Calcium 9.5 mg/dL Protein, Total 7.1 g/dL Albumin 3.5 g/dL Globulin 3.6 g/dL Bilirubin, Total 2.2 mg/dL ALT (SGPT) 13 U/L AST (SGOT) 28 U/L Alkaline Phosphatase 88 IU/L WBC 6.5 10 3/uL RBC 4.08 10 6/uL HGB 11.4 g/dL HCT 36.8 % MCV 90.2 fl MCH 27.9 pg MCHC 31.0 g/dL RDW 16.6 % Platelet Count 186 10 3/cmm MPV 10.9 fL Neutrophils 3.79 10 3/uL Lymphocytes 1.7 10 3/uL Monocytes 0.7 10 3/uL Eosinophils 0.2 10 3/uL Basophils 0.1 10 3/uL Neutrophil % 58.1 % Lymphocyte % 26.7 % Monocyte % 10.1 % Eosinophil % 3.4 % Basophils % 1.4 % NRBC % 0 % Problem List: 1. Grade 3 invasive ductal carcinoma of the left breast, by clinical evaluation stage IIA (T2, N0, M0), ER negative/WI positive and HER-2/santa positive. 2. 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 3. History of nephrolithiasis. 4. Anxiety/depression. 5. Her family history is positive for breast cancer, pancreatic cancer, and colon cancer affecting first-degree relatives, and she is at risk for a BRCA related cancer. Problems Addressed with this Encounter and Plan: 1. Patient with grade 3 invasive ductal carcinoma of the left breast, by clinical evaluation stage IIA (T2, N0, M0), ER negative/WI positive and HER-2/santa positive. She had presented with a palpable mass in the left breast. The diagnosis was confirmed by ultrasound directed biopsy on 10/05/2020. She has indicated that she is not interested in breast conservation. As she had only borderline indications for neoadjuvant chemotherapy and with her management complicated by her underlying muscular dystrophy, she was recommended to proceed with mastectomy. She then underwent left simple mastectomy and left axillary sentinel lymph node biopsy on 11/05/2020. Her disease was pathologic stage IIA (pT2, pN0, M0). The tumor was again confirmed to be ER negative. She has advised that with a grade 3 primary tumor that is greater than 3 cm and is positive for overexpression of HER-2/santa, she will be at higher than average risk for recurrence for a node-negative breast cancer. She would potentially benefit with adjuvant chemotherapy, particularly with the tumor being HER-2/santa positive. However, she also will be at increased risk for treatment related toxicities, particularly with any taxane-based regimen. I had previously discussed her case with one of the breast cancer specialists at [facility]. Based on that discussion, she was recommended to undergo adjuvant therapy with trastuzumab emtansine, as it was felt to have the most potential benefit and least toxicity in her situation. She began adjuvant therapy with trastuzumab emtansine on 12/30/2020. It was administered at a standard dosage of 3.6 mg/kg by IV infusion. Side effects initially were limited to some hot flashes/sweating, mild nausea, eye irritation, and a mild malar skin eruption. and she was then able to continue treatment at 3-week intervals. She is now completed 5 cycles. At this point she does appear to be having more side effects, particularly fatigue and some neuropathy. In the setting of node-negative disease and worsening side effects, I think it will be best to limit her course of treatment to 6 cycles and minimize the risk of further toxicity. As such, she will be given trastuzumab emtansine 3.6 mg/kg by IV infusion today, I will not plan to administer any further treatment. She will be scheduled for a follow-up visit in 1 month. 2. She has hypokalemia. She continues on a liquid oral potassium supplement at 10 mEq daily. Signed By: Parmjit Lemon M.D. <<Signature on File>>
== END 2021-04-14 11:51 | disposition home or self-care (01) ==
PROVIDERS: PCP Nurse Practitioner Family; Visit Provider Internal Medicine Medical Oncology
DX: Z51.11 Encounter for antineoplastic chemotherapy (principal); C50.912 Malignant neoplasm of unspecified site of left female breast; Z17.0 Estrogen receptor positive status [ER+]; G71.09 Other specified muscular dystrophies; F41.9 Anxiety disorder, unspecified; F32.A Depression, unspecified; Z79.899 Other long term (current) drug therapy; Z80.3 Family history of malignant neoplasm of breast; Z80.8 Family history of malignant neoplasm of other organs or systems
CPT/HCPCS: 80053; 85025; 96413; 99215; J7050; J9354

== ENCOUNTER 2021-05-12 11:54 | Outpatient (CLI) | payer MEDICARE, MEDICAID, SELFPAY ==
[2020-11-25 09:35] VITALS: BP 148/69; BMI 20.9
[2021-05-12 12:25] LABS: Basophils # 0.1 10^3/uL (0.0-0.1); Eosinophils # 0.2 10^3/uL (0.0-0.8); Eosinophils % 3.6 %; Hematocrit 37.7 % (37.0-47.0); Hemoglobin 11.8 g/dL (11.5-15.3); Lymphocytes # 1.2 10^3/uL (0.8-4.8); Mean Corpuscular HGB Conc 31.3 g/dL (30.0-36.0); Mean Corpuscular Hemoglobin 27.7 pg (28.0-34.0); Mean Corpuscular Volume 88.5 fl (81-99); Mean Platelet Volume 10.7 fL (7.4-10.4); Monocytes # 0.7 10^3/uL (0.2-0.9); Monocytes % 9.9 %; Neutrophils % 67.4 %; Nucleated Red Blood Cells % 0 %; Platelet Count 147 10^3/cmm (130-400); Red Blood Count 4.26 10^6/uL (4.1-5.3); Red Cell Distribution Width 16.4 % (12.1-15.1); White Blood Count 6.7 10^3/uL (4.0-10.0)
[2021-05-12 12:48] LABS: Alanine Aminotransferase 11 U/L (0-33); Albumin Level 3.6 g/dL (3.5-5.2); Alkaline Phosphatase 87 IU/L (35-105); Anion Gap 13.3 (5-19); Aspartate Amino Transferase 23 U/L (0-32); Blood Urea Nitrogen 13 mg/dL (8-23); Calcium 9.6 mg/dL (8.5-10.5); Carbon Dioxide 19 mmol/L (22-29); Chloride 108 mmol/L (98-107); Globulin 3.5 g/dL (1.3-4.6); Glucose 109 mg/dL (65-115); Osmolality Calculated 285 mOsm/kg (285-295); Potassium 3.3 mmol/L (3.5-5.1); Sodium 137 mmol/L (136-145); Total Bilirubin 2.7 mg/dL (0.15-1.2); Total Protein 7.1 g/dL (6.6-8.7)
[2021-05-12 12:50] LABS: Glomerular Filtration Rate 798.3 mL/min (90-130)
--- NOTE | 2021-05-18 08:02 | ONC FU_ITS ---
Karyn Adan Progress Note Patient: Dolly Mandel Unit #: [id number]: 1960 Dicatated By: Karyn Adan N.P.Date of Visit:May 12, 2021 Onc MED Follow-up/Prog Note Chief Complaint: Breast cancer. History of Present Illness: This is a 61 year-old woman with grade 3 invasive ductal carcinoma of the left breast, by clinical evaluation stage IIA (T2, N0, M0), ER negative/VA positive and HER-2/santa positive. 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 She has some residual function of her forearms and hands, but she is otherwise paraplegic. She required tracheostomy placement in 1997. She had recently been found by her primary care provider to have a palpable mass in the left breast. Ultrasound of the left breast on 09/14/2020 showed an irregular hypoechoic mass at the 12:00 axis of the left breast 5 cm from the nipple. It correlated with the palpable lump. It measured approximately 2.1 x 2.0 x 2.0 cm and was noted to extend towards the skin surface. The findings were BI-RADS 4, suspicious. On 09/29/2019 when she underwent ultrasound directed biopsy of the left breast. Pathology showed grade 3 invasive ductal carcinoma. The breast prognostic profile showed ER negative at 0% and VA positive at 21%. HER-2/santa was 2+ by IHC. It was positive by FISH with amplification ratio 2.1 and with an average of 5.2 HER-2 copies/cell. She had surgical oncology consultation with Dr. Hardik Peoples on 10/05/2020. At that time she indicated that she was not interested in breast conservation management. I had seen her initially on 10/13/2020 in regard to recommendations for systemic therapy. By clinical assessment she would have just had borderline indications for neoadjuvant therapy, and with her known muscular dystrophy, I recommended that she proceed with mastectomy. She then underwent left simple mastectomy with left axillary sentinel lymph node biopsy on 11/05/2020. Pathology showed grade 3 invasive ductal carcinoma measuring 3.2 cm in greatest dimension. All margins were free of tumor. There was no involvement in 5 axillary lymph nodes. The tumor was retested for ER and it was again negative. Her pathologic staging was pT2, pN0. I had seen her for a follow-up visit on 11/27/2020. With HER-2/santa positive disease and a T2 primary tumor, I felt that she should be given adjuvant chemotherapy. With the underlying muscular dystrophy and with the potential neuro muscular toxicities associated with use of any taxane agent, she was recommended to undergo adjuvant therapy with trastuzumab emtansine. Her medical illnesses, in addition to the breast cancer, include limb/girdle muscular dystrophy and anxiety/depression. She has a history of nephrolithiasis. She has a significant family history for cancer. She is a non-smoker. INTERIM HISTORY: She began cycle 1 of adjuvant therapy with trastuzumab emtansine on 12/30/2020. She tolerated the initial infusion without acute toxicity. She was then able to continue treatment at 3-week intervals. As of 03/24/2021 she had completed her 5th cycle. Patient presents today for follow-up. She complains of constant fatigue. Her appetite is fair. She denies fever, chills, night sweats. No sinus drainage or mouth sores. No shortness of breath, cough, chest pain. She has some constipation but it is managed with [id number] medications. She complains of pain in both of her feet secondary to neuropathy. She is also having some edema in bilateral lower extremities. Review Of Symptoms: See above. Past Medical History: Depression Gastroesophageal reflux disease History of nephrolithiasis Muscular dystrophy Paraplegia Ventilator dependent respiratory failure Past Surgical History: Colonoscopy Gastrostomy tube, placement and removal Tracheostomy Tubal ligation Mastectomy in 2020 - left mastectomy, by Dr. Peoples Ultrasound directed biopsy of the left breast in 2020 Tracheostomy placement in 1997 Allergies: Acetaminophen, Amoxicillin, Nitrofurantoin Macrocrystal, [id number], and Silk Tape. Medications: Ondansetron 1 Tablet (of 4 mg) Tablet Dispersable Oral daily PRN traMADol HCl 1 Each (of 50 mg) Tablet Oral four times a day PRN Family History: Ms. Mandel's mother at age 96: stroke, and type II diabetes. Ms. Mandel's father at age 72: colon cancer. Ms. Mandel has 1 brother who is : cancer. She has 1 sister who is alive: breast cancer. Father age 72 with colon and lung cancer. Mother had diabetes. She at age 96. A brother of pancreatic cancer in his 60s. A sister was treated for breast cancer in 1977. She is currently alive without recurrence at age 75. Social History: Ms. Mandel is . Ms. Mandel has never smoked. She has no history of drinking. She is a non-smoker. She does not drink alcohol. Physical Examination: Performed on May 12, 2021 13:37: Height - 66.00 in, Temperature - 98.9 F (HIGH), Pulse - 77 /min, Respiration - 16 /min, BP - 129/73 mm(hg), O2 Sat - 98 %, Pain - 7, and Fatigue - 10. Performance Status: 3 - Capable of only limited self-care, confined to bed or chair more than 50% of waking hours. (ECOG) Constitutional Alert, cooperative, oriented. Mood and affect appropriate. Appears close to chronological age. Well nourished. Well developed. Head Normocephalic; no scars. Respiratory Lungs are clear to auscultation without rhonchi or wheezing. Cardiovascular Regular rate and rhythm of heart without murmurs, gallops or rubs. Abdomen Non-tender, non-distended, no masses, ascites or hepatosplenomegaly. Good bowel sounds. No guarding or rebound tenderness. Extremities neuropathy bilateral feet Psychiatric Alert and oriented times three. Coherent speech. Verbalizes understanding of our discussions today. Laboratory: Test performed on May 12, 2021 12:10 Sodium 137 mmol/L Potassium 3.3 mmol/L Chloride 108 mmol/L CO2 19 mmol/L Anion Gap 13.3 BUN 13 mg/dL Creatinine 0.1 mg/dL Cr Clearance (Est) 531.9100 mL/min eGFR 798.3 mL/min Glucose 109 mg/dL Osmolality - Calculated 285 mOsm/kg Calcium 9.6 mg/dL Protein, Total 7.1 g/dL Albumin 3.6 g/dL Globulin 3.5 g/dL Bilirubin, Total 2.7 mg/dL ALT (SGPT) 11 U/L AST (SGOT) 23 U/L Alkaline Phosphatase 87 IU/L WBC 6.7 10 3/uL RBC 4.26 10 6/uL HGB 11.8 g/dL HCT 37.7 % MCV 88.5 fl MCH 27.7 pg MCHC 31.3 g/dL RDW 16.4 % Platelet Count 147 10 3/cmm MPV 10.7 fL Neutrophils 4.50 10 3/uL Lymphocytes 1.2 10 3/uL Monocytes 0.7 10 3/uL Eosinophils 0.2 10 3/uL Basophils 0.1 10 3/uL Neutrophil % 67.4 % Lymphocyte % 18.0 % Monocyte % 9.9 % Eosinophil % 3.6 % Basophils % 1.0 % NRBC % 0 % Test performed on Dec 30, 2020 14:45 Hepatitis A Ab, IgM Non-Reactive Hepatitis B Core Ab, Total Non-Reactive Hepatitis B Surf Antigen Non-Reactive Hepatitis B Surface Ab 3.5 STATUS of IMMUINITY Inconsistent with Immunity 0.0 - 8.4 mIU/mL Consistent with Indeterminate Immunity 8.5 - 11.4 mIU/mL Consistent with Immunity >= 11.5 mIU/mL Hepatitis C Ab Non-Reactive Impression: 1. Grade 3 invasive ductal carcinoma of the left breast, by clinical evaluation stage IIA (T2, N0, M0), ER negative/VA positive and HER-2/santa positive. 2. 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 3. History of nephrolithiasis. 4. Anxiety/depression. 5. Her family history is positive for breast cancer, pancreatic cancer, and colon cancer affecting first-degree relatives, and she is at risk for a BRCA related cancer. Plan: 1. Patient with grade 3 invasive ductal carcinoma of the left breast, by clinical evaluation stage IIA (T2, N0, M0), ER negative/VA positive and HER-2/santa positive. She had presented with a palpable mass in the left breast. The diagnosis was confirmed by ultrasound directed biopsy on 10/05/2020. She has indicated that she is not interested in breast conservation. As she had only borderline indications for neoadjuvant chemotherapy and with her management complicated by her underlying muscular dystrophy, she was recommended to proceed with mastectomy. She then underwent left simple mastectomy and left axillary sentinel lymph node biopsy on 11/05/2020. Her disease was pathologic stage IIA (pT2, pN0, M0). The tumor was again confirmed to be ER negative. She has advised that with a grade 3 primary tumor that is greater than 3 cm and is positive for overexpression of HER-2/santa, she will be at higher than average risk for recurrence for a node-negative breast cancer. She would potentially benefit with adjuvant chemotherapy, particularly with the tumor being HER-2/santa positive. However, she also will be at increased risk for treatment related toxicities, particularly with any taxane-based regimen. I had previously discussed her case with one of the breast cancer specialists at [facility]. Based on that discussion, she was recommended to undergo adjuvant therapy with trastuzumab emtansine, as it was felt to have the most potential benefit and least toxicity in her situation. She began adjuvant therapy with trastuzumab emtansine on 12/30/2020. It was administered at a standard dosage of 3.6 mg/kg by IV infusion. Side effects initially were limited to some hot flashes/sweating, mild nausea, eye irritation, and a mild malar skin eruption. and she was then able to continue treatment at 3-week intervals. She is now completed 5 cycles. At this point she does appear to be having more side effects, particularly fatigue and some neuropathy. In the setting of node-negative disease and worsening side effects, it will be best to limit her course of treatment to 6 cycles and minimize the risk of further toxicity. As such, she was given trastuzumab emtansine 3.6 mg/kg by IV infusion on 04/14/2021, with no plan to administer any further treatment. Today she continues to have severe pain bilateral feet but worse in the left. She has swelling that is worse in the left foot and leg also. We will obtain an Doppler ultrasound to rule out DVT. Doxepin cream was sent to pharmacy for neuropathic pain. She will return to the clinic in 1 month with CMP and CBC 2. She has hypokalemia. She continues on a liquid oral potassium supplement at 10 mEq daily. Signed By: Karyn Adan N.P. <<Signature on File>>
== END 2021-05-12 11:55 | disposition home or self-care (01) ==
PROVIDERS: Nurse Practitioner Family; PCP Nurse Practitioner Family; Visit Provider Internal Medicine Medical Oncology
DX: C50.912 Malignant neoplasm of unspecified site of left female breast (principal); F41.9 Anxiety disorder, unspecified; F32.A Depression, unspecified; G82.20 Paraplegia, unspecified; G71.09 Other specified muscular dystrophies; E87.6 Hypokalemia; M79.89 Other specified soft tissue disorders; K21.9 Gastro-esophageal reflux disease without esophagitis; Z99.11 Dependence on respirator [ventilator] status; Z79.899 Other long term (current) drug therapy
CPT/HCPCS: 36415; 36591; 80053; 85025; 99214

== ENCOUNTER 2021-05-13 09:03 | Outpatient (CLI) | payer MEDICARE, MEDICAID, SELFPAY ==
[2020-11-25 09:35] VITALS: BP 148/69; BMI 20.9
--- NOTE | 2021-05-13 09:19 | USCV_ITS ---
Ministerio Dolly Age: 61 Gender: F : 1960 Exam Date: 05/13/2021 09:28 Ordering Phys: Karyn Adan NP Technologist: Carter Khan [place] [facility] [place]: [place] edema PROCEDURES: Venous duplex imaging was performed in only the left lower extremity. The following venous structures were evaluated: common femoral vein, profunda vein, proximal portion of the greater saphenous vein, superficial femoral vein, and the popliteal vein. In addition, the posterior tibial and peroneal trunk were evaluated. FINDINGS: Normal 2-D Doppler and augmentation and compressibility throughout the lower extremity venous structures. Additional imaging through the proximal calf veins also reveals no thrombus. Limited evaluation of the greater saphenous vein is patent with no thrombus.. The veins were found to be easily compressible with spontaneous blood flow. Non pulsatile flow pattern. CONCLUSIONS No evidence of DVT in the above-mentioned identifiable veins. Dr Oscar Florian MD [facility] (Electronically Signed) Final Date: 14 May 2021 10:24 S
== END 2021-05-13 09:04 | disposition home or self-care (01) ==
LOC: RAD 09:09
PROVIDERS: PCP Nurse Practitioner Family; Visit Provider Nurse Practitioner Family
DX: M79.89 Other specified soft tissue disorders (principal)
CPT/HCPCS: 93971

== ENCOUNTER 2021-05-19 09:00 | Outpatient (CLI) | payer MEDICARE, MEDICAID, SELFPAY ==
[2020-11-25 09:35] VITALS: BP 148/69; BMI 20.9
--- NOTE | 2021-05-26 10:35 | ONC FU_ITS ---
Karyn Adan Progress Note Patient: Dolly Mandel Unit #: [id number]: 1960 Dicatated By: Karyn Adan N.P.Date of Visit:May 19, 2021 Onc MED Follow-up/Prog Note Chief Complaint: Breast cancer. History of Present Illness: This is a 61 year-old woman with grade 3 invasive ductal carcinoma of the left breast, by clinical evaluation stage IIA (T2, N0, M0), ER negative/MS positive and HER-2/santa positive. 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 She has some residual function of her forearms and hands, but she is otherwise paraplegic. She required tracheostomy placement in 1997. She had recently been found by her primary care provider to have a palpable mass in the left breast. Ultrasound of the left breast on 09/14/2020 showed an irregular hypoechoic mass at the 12:00 axis of the left breast 5 cm from the nipple. It correlated with the palpable lump. It measured approximately 2.1 x 2.0 x 2.0 cm and was noted to extend towards the skin surface. The findings were BI-RADS 4, suspicious. On 09/29/2019 when she underwent ultrasound directed biopsy of the left breast. Pathology showed grade 3 invasive ductal carcinoma. The breast prognostic profile showed ER negative at 0% and MS positive at 21%. HER-2/santa was 2+ by IHC. It was positive by FISH with amplification ratio 2.1 and with an average of 5.2 HER-2 copies/cell. She had surgical oncology consultation with Dr. Hardik Peoples on 10/05/2020. At that time she indicated that she was not interested in breast conservation management. I had seen her initially on 10/13/2020 in regard to recommendations for systemic therapy. By clinical assessment she would have just had borderline indications for neoadjuvant therapy, and with her known muscular dystrophy, I recommended that she proceed with mastectomy. She then underwent left simple mastectomy with left axillary sentinel lymph node biopsy on 11/05/2020. Pathology showed grade 3 invasive ductal carcinoma measuring 3.2 cm in greatest dimension. All margins were free of tumor. There was no involvement in 5 axillary lymph nodes. The tumor was retested for ER and it was again negative. Her pathologic staging was pT2, pN0. I had seen her for a follow-up visit on 11/27/2020. With HER-2/santa positive disease and a T2 primary tumor, I felt that she should be given adjuvant chemotherapy. With the underlying muscular dystrophy and with the potential neuro muscular toxicities associated with use of any taxane agent, she was recommended to undergo adjuvant therapy with trastuzumab emtansine. Her medical illnesses, in addition to the breast cancer, include limb/girdle muscular dystrophy and anxiety/depression. She has a history of nephrolithiasis. She has a significant family history for cancer. She is a non-smoker. INTERIM HISTORY: She began cycle 1 of adjuvant therapy with trastuzumab emtansine on 12/30/2020. She tolerated the initial infusion without acute toxicity. She was then able to continue treatment at 3-week intervals. As of 03/24/2021 she had completed her 5th cycle. Patient presents today for follow-up. She is here today because she is complaining of her left foot hurting like a stabbing constant pain that she rates at a 6. It continues to be swollen. She has no injury that she is aware of. Review Of Symptoms: See above. Past Medical History: Depression Gastroesophageal reflux disease History of nephrolithiasis Muscular dystrophy Paraplegia Ventilator dependent respiratory failure Past Surgical History: Colonoscopy Gastrostomy tube, placement and removal Tracheostomy Tubal ligation Mastectomy in 2020 - left mastectomy, by Dr. Peoples Ultrasound directed biopsy of the left breast in 2020 Tracheostomy placement in 1997 Allergies: Acetaminophen, Amoxicillin, Nitrofurantoin Macrocrystal, [id number], and Silk Tape. Medications: Ondansetron 1 Tablet (of 4 mg) Tablet Dispersable Oral daily PRN traMADol HCl 1 Each (of 50 mg) Tablet Oral four times a day PRN Family History: Ms. Mandel's mother at age 96: stroke, and type II diabetes. Ms. Mandel's father at age 72: colon cancer. Ms. Mandel has 1 brother who is : cancer. She has 1 sister who is alive: breast cancer. Father age 72 with colon and lung cancer. Mother had diabetes. She at age 96. A brother of pancreatic cancer in his 60s. A sister was treated for breast cancer in 1977. She is currently alive without recurrence at age 75. Social History: Ms. Mandel is . Ms. Mandel has never smoked. She has no history of drinking. She is a non-smoker. She does not drink alcohol. Physical Examination: Performed on May 19, 2021 15:07: Height - 66.00 in, Temperature - 98.1 F (LOW), Pulse - 68 /min, Respiration - 18 /min, BP - 114/71 mm(hg), O2 Sat - 96 %, Pain - 6, and Fatigue - 6. Performance Status: 3 - Capable of only limited self-care, confined to bed or chair more than 50% of waking hours. (ECOG) Constitutional Alert, cooperative, oriented. Mood and affect appropriate. Appears close to chronological age. Well nourished. Well developed. Head Normocephalic; no scars. Respiratory Lungs are clear to auscultation without rhonchi or wheezing. Cardiovascular Regular rate and rhythm of heart without murmurs, gallops or rubs. Extremities left foot with edema and tenderness Laboratory: Test performed on May 12, 2021 12:10 Sodium 137 mmol/L Potassium 3.3 mmol/L Chloride 108 mmol/L CO2 19 mmol/L Anion Gap 13.3 BUN 13 mg/dL Creatinine 0.1 mg/dL Cr Clearance (Est) 531.9100 mL/min eGFR 798.3 mL/min Glucose 109 mg/dL Osmolality - Calculated 285 mOsm/kg Calcium 9.6 mg/dL Protein, Total 7.1 g/dL Albumin 3.6 g/dL Globulin 3.5 g/dL Bilirubin, Total 2.7 mg/dL ALT (SGPT) 11 U/L AST (SGOT) 23 U/L Alkaline Phosphatase 87 IU/L WBC 6.7 10 3/uL RBC 4.26 10 6/uL HGB 11.8 g/dL HCT 37.7 % MCV 88.5 fl MCH 27.7 pg MCHC 31.3 g/dL RDW 16.4 % Platelet Count 147 10 3/cmm MPV 10.7 fL Neutrophils 4.50 10 3/uL Lymphocytes 1.2 10 3/uL Monocytes 0.7 10 3/uL Eosinophils 0.2 10 3/uL Basophils 0.1 10 3/uL Neutrophil % 67.4 % Lymphocyte % 18.0 % Monocyte % 9.9 % Eosinophil % 3.6 % Basophils % 1.0 % NRBC % 0 % Test performed on Dec 30, 2020 14:45 Hepatitis A Ab, IgM Non-Reactive Hepatitis B Core Ab, Total Non-Reactive Hepatitis B Surf Antigen Non-Reactive Hepatitis B Surface Ab 3.5 STATUS of IMMUINITY Inconsistent with Immunity 0.0 - 8.4 mIU/mL Consistent with Indeterminate Immunity 8.5 - 11.4 mIU/mL Consistent with Immunity >= 11.5 mIU/mL Hepatitis C Ab Non-Reactive Impression: 1. Grade 3 invasive ductal carcinoma of the left breast, by clinical evaluation stage IIA (T2, N0, M0), ER negative/MS positive and HER-2/santa positive. 2. 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 3. History of nephrolithiasis. 4. Anxiety/depression. 5. Her family history is positive for breast cancer, pancreatic cancer, and colon cancer affecting first-degree relatives, and she is at risk for a BRCA related cancer. Plan: 1. Patient with grade 3 invasive ductal carcinoma of the left breast, by clinical evaluation stage IIA (T2, N0, M0), ER negative/MS positive and HER-2/santa positive. She had presented with a palpable mass in the left breast. The diagnosis was confirmed by ultrasound directed biopsy on 10/05/2020. She has indicated that she is not interested in breast conservation. As she had only borderline indications for neoadjuvant chemotherapy and with her management complicated by her underlying muscular dystrophy, she was recommended to proceed with mastectomy. She then underwent left simple mastectomy and left axillary sentinel lymph node biopsy on 11/05/2020. Her disease was pathologic stage IIA (pT2, pN0, M0). The tumor was again confirmed to be ER negative. She has advised that with a grade 3 primary tumor that is greater than 3 cm and is positive for overexpression of HER-2/santa, she will be at higher than average risk for recurrence for a node-negative breast cancer. She would potentially benefit with adjuvant chemotherapy, particularly with the tumor being HER-2/santa positive. However, she also will be at increased risk for treatment related toxicities, particularly with any taxane-based regimen. I had previously discussed her case with one of the breast cancer specialists at [facility]. Based on that discussion, she was recommended to undergo adjuvant therapy with trastuzumab emtansine, as it was felt to have the most potential benefit and least toxicity in her situation. She began adjuvant therapy with trastuzumab emtansine on 12/30/2020. It was administered at a standard dosage of 3.6 mg/kg by IV infusion. Side effects initially were limited to some hot flashes/sweating, mild nausea, eye irritation, and a mild malar skin eruption. and she was then able to continue treatment at 3-week intervals. She is now completed 5 cycles. At this point she does appear to be having more side effects, particularly fatigue and some neuropathy. In the setting of node-negative disease and worsening side effects, it will be best to limit her course of treatment to 6 cycles and minimize the risk of further toxicity. As such, she was given trastuzumab emtansine 3.6 mg/kg by IV infusion on 04/14/2021, with no plan to administer any further treatment. Patient presents today with continued pain in the left foot along with swelling. Doppler ultrasound was performed which was negative DVT. We will obtain x-rays of the foot and Lasix 20 mg p.o. daily x3 has been ordered to help with edema. Explained to the patient that the Lasix may not be effective. Recommended that she elevate that foot and we will reevaluate at her next appointment. 2. She has hypokalemia. She continues on a liquid oral potassium supplement at 10 mEq daily. Signed By: Karyn Adan N.P. <<Signature on File>>
== END 2021-05-19 09:01 | disposition home or self-care (01) ==
LOC: ONCMED 05-26 08:19
PROVIDERS: PCP Nurse Practitioner Family; Visit Provider Nurse Practitioner Family
DX: C50.912 Malignant neoplasm of unspecified site of left female breast (principal); F41.9 Anxiety disorder, unspecified; F32.A Depression, unspecified; G82.20 Paraplegia, unspecified; G71.09 Other specified muscular dystrophies; E87.6 Hypokalemia; M79.89 Other specified soft tissue disorders; K21.9 Gastro-esophageal reflux disease without esophagitis; Z99.11 Dependence on respirator [ventilator] status; Z79.899 Other long term (current) drug therapy
CPT/HCPCS: 99214

== ENCOUNTER 2021-06-09 12:55 | Outpatient (CLI) | payer MEDICARE, MEDICAID, SELFPAY ==
[2020-11-25 09:35] VITALS: BP 148/69; BMI 20.9
[2021-06-09 13:38] LABS: Basophils # 0.1 10^3/uL (0.0-0.1); Eosinophils # 0.3 10^3/uL (0.0-0.8); Eosinophils % 3.9 %; Hematocrit 39.5 % (37.0-47.0); Hemoglobin 12.5 g/dL (11.5-15.3); Lymphocytes # 1.9 10^3/uL (0.8-4.8); Lymphocytes % 27.1 %; Mean Corpuscular HGB Conc 31.6 g/dL (30.0-36.0); Mean Corpuscular Hemoglobin 27.7 pg (28.0-34.0); Mean Corpuscular Volume 87.4 fl (81-99); Mean Platelet Volume 10.2 fL (7.4-10.4); Monocytes # 0.6 10^3/uL (0.2-0.9); Monocytes % 8.4 %; Neutrophils # 4.13 10^3/uL (1.8-7.7); Neutrophils % 58.9 %; Nucleated Red Blood Cells % 0 %; Platelet Count 180 10^3/cmm (130-400); Red Blood Count 4.52 10^6/uL (4.1-5.3); Red Cell Distribution Width 16.8 % (12.1-15.1)
[2021-06-09 14:05] LABS: Alanine Aminotransferase 13 U/L (0-33); Albumin Level 3.6 g/dL (3.5-5.2); Alkaline Phosphatase 108 IU/L (35-105); Anion Gap 15.5 (5-19); Aspartate Amino Transferase 27 U/L (0-32); Blood Urea Nitrogen 14 mg/dL (8-23); Calcium 9.6 mg/dL (8.5-10.5); Carbon Dioxide 18 mmol/L (22-29); Chloride 110 mmol/L (98-107); Globulin 3.7 g/dL (1.3-4.6); Glucose 98 mg/dL (65-115); Osmolality Calculated 290 mOsm/kg (285-295); Potassium 3.5 mmol/L (3.5-5.1); Sodium 140 mmol/L (136-145); Total Bilirubin 2.5 mg/dL (0.15-1.2); Total Protein 7.3 g/dL (6.6-8.7)
[2021-06-09 14:12] LABS: Glomerular Filtration Rate 798.3 mL/min (90-130)
[2021-06-09 16:29] LABS: Thyroid Stimulating Hormone 4.87 uIU/mL (0.27-4.20); Vitamin B12 657 pg/mL (232-1245)
--- NOTE | 2021-06-09 19:03 | ONC FU_ITS ---
Karyn Adan Progress Note Patient: Dolly Mandel Unit #: [id number]: [id number] Dicatated By: Karyn Adan N.P.Date of Visit:Jun 09, 2021 Onc MED Follow-up/Prog Note Chief Complaint: Breast cancer. 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 She has some residual function of her forearms and hands, but she is otherwise paraplegic. She required tracheostomy placement in 1997. She had recently been found by her primary care provider to have a palpable mass in the left breast. Ultrasound of the left breast on 09/14/2020 showed an irregular hypoechoic mass at the 12:00 axis of the left breast 5 cm from the nipple. It correlated with the palpable lump. It measured approximately 2.1 x 2.0 x 2.0 cm and was noted to extend towards the skin surface. The findings were BI-RADS 4, suspicious. On 09/29/2019 when she underwent ultrasound directed biopsy of the left breast. Pathology showed grade 3 invasive ductal carcinoma. The breast prognostic profile showed ER negative at 0% and MN positive at 21%. HER-2/santa was 2+ by IHC. It was positive by FISH with amplification ratio 2.1 and with an average of 5.2 HER-2 copies/cell. She had surgical oncology consultation with Dr. Hardik Peoples on 10/05/2020. At that time she indicated that she was not interested in breast conservation management. I had seen her initially on 10/13/2020 in regard to recommendations for systemic therapy. By clinical assessment she would have just had borderline indications for neoadjuvant therapy, and with her known muscular dystrophy, I recommended that she proceed with mastectomy. She then underwent left simple mastectomy with left axillary sentinel lymph node biopsy on 11/05/2020. Pathology showed grade 3 invasive ductal carcinoma measuring 3.2 cm in greatest dimension. All margins were free of tumor. There was no involvement in 5 axillary lymph nodes. The tumor was retested for ER and it was again negative. Her pathologic staging was pT2, pN0. I had seen her for a follow-up visit on 11/27/2020. With HER-2/santa positive disease and a T2 primary tumor, I felt that she should be given adjuvant chemotherapy. With the underlying muscular dystrophy and with the potential neuro muscular toxicities associated with use of any taxane agent, she was recommended to undergo adjuvant therapy with trastuzumab emtansine. Her medical illnesses, in addition to the breast cancer, include limb/girdle muscular dystrophy and anxiety/depression. She has a history of nephrolithiasis. She has a significant family history for cancer. She is a non-smoker. INTERIM HISTORY: She began cycle 1 of adjuvant therapy with trastuzumab emtansine on 12/30/2020. She tolerated the initial infusion without acute toxicity. She was then able to continue treatment at 3-week intervals. As of 03/24/2021 she had completed her 5th cycle. Patient presents today for follow-up. She states she is continues to have moderate fatigue. Her appetite is fair. She denies fever, chills, night sweats. No sinus drainage or sore throat. No shortness of breath, cough, chest pain. No GI or problems. She continues to have pain in her bilateral feet. Due to the edema DVT was ruled out and x-rays were performed that ruled out any type of fracture. She states that the pain is better and the swelling has improved also. Review Of Symptoms: See above. Past Medical History: Depression Gastroesophageal reflux disease History of nephrolithiasis Muscular dystrophy Paraplegia Ventilator dependent respiratory failure Past Surgical History: Colonoscopy Gastrostomy tube, placement and removal Tracheostomy Tubal ligation Mastectomy in 2020 - left mastectomy, by Dr. Peoples Ultrasound directed biopsy of the left breast in 2020 Tracheostomy placement in 1997 Allergies: Acetaminophen, Amoxicillin, Nitrofurantoin Macrocrystal, [id number], and Silk Tape. Medications: Ondansetron 1 Tablet (of 4 mg) Tablet Dispersable Oral daily PRN traMADol HCl 1 Each (of 50 mg) Tablet Oral four times a day PRN Family History: Ms. Mandel's mother at age 96: stroke, and type II diabetes. Ms. Mandel's father at age 72: colon cancer. Ms. Mandel has 1 brother who is : cancer. She has 1 sister who is alive: breast cancer. Father age 72 with colon and lung cancer. Mother had diabetes. She at age 96. A brother of pancreatic cancer in his 60s. A sister was treated for breast cancer in 1977. She is currently alive without recurrence at age 75. Social History: Ms. Mandel is . Ms. Mandel has never smoked. She has no history of drinking. She is a non-smoker. She does not drink alcohol. Physical Examination: Performed on Jun 09, 2021 14:45: Height - 66.00 in, Temperature - 97.6 F (LOW), Pulse - 71 /min, Respiration - 16 /min, BP - 126/81 mm(hg), O2 Sat - 99 %, Pain - 4, and Fatigue - 8. Performance Status: 3 - Capable of only limited self-care, confined to bed or chair more than 50% of waking hours. (ECOG) Constitutional Alert, cooperative, oriented. Mood and affect appropriate. Appears close to chronological age. Well nourished. Well developed. Head Normocephalic; no scars. Respiratory Lungs are clear to auscultation without rhonchi or wheezing. Quadraplegic requiring ventilator Cardiovascular Regular rate and rhythm of heart without murmurs, gallops or rubs. Abdomen Non-tender, non-distended, no masses, ascites or hepatosplenomegaly. Good bowel sounds. No guarding or rebound tenderness. Extremities Bilateral lower extremity edema Psychiatric Alert and oriented times three. Coherent speech. Verbalizes understanding of our discussions today. Laboratory: Test performed on Jun 09, 2021 13:22 Sodium 140 mmol/L TSH 4.87 uIU/mL Vitamin B12 657 pg/mL Potassium 3.5 mmol/L Chloride 110 mmol/L CO2 18 mmol/L Anion Gap 15.5 BUN 14 mg/dL Creatinine 0.1 mg/dL Cr Clearance (Est) 531.9100 mL/min eGFR 798.3 mL/min Glucose 98 mg/dL Osmolality - Calculated 290 mOsm/kg Calcium 9.6 mg/dL Protein, Total 7.3 g/dL Albumin 3.6 g/dL Globulin 3.7 g/dL Bilirubin, Total 2.5 mg/dL ALT (SGPT) 13 U/L AST (SGOT) 27 U/L Alkaline Phosphatase 108 IU/L WBC 7.0 10 3/uL RBC 4.52 10 6/uL HGB 12.5 g/dL HCT 39.5 % MCV 87.4 fl MCH 27.7 pg MCHC 31.6 g/dL RDW 16.8 % Platelet Count 180 10 3/cmm MPV 10.2 fL Neutrophils 4.13 10 3/uL Lymphocytes 1.9 10 3/uL Monocytes 0.6 10 3/uL Eosinophils 0.3 10 3/uL Basophils 0.1 10 3/uL Neutrophil % 58.9 % Lymphocyte % 27.1 % Monocyte % 8.4 % Eosinophil % 3.9 % Basophils % 1.0 % NRBC % 0 % Test performed on Dec 30, 2020 14:45 Hepatitis A Ab, IgM Non-Reactive Hepatitis B Core Ab, Total Non-Reactive Hepatitis B Surf Antigen Non-Reactive Hepatitis B Surface Ab 3.5 STATUS of IMMUINITY Inconsistent with Immunity 0.0 - 8.4 mIU/mL Consistent with Indeterminate Immunity 8.5 - 11.4 mIU/mL Consistent with Immunity >= 11.5 mIU/mL Hepatitis C Ab Non-Reactive Impression: 1. Grade 3 invasive ductal carcinoma of the left breast, by clinical evaluation stage IIA (T2, N0, M0), ER negative/MN positive and HER-2/santa positive. 2. 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 3. History of nephrolithiasis. 4. Anxiety/depression. 5. Her family history is positive for breast cancer, pancreatic cancer, and colon cancer affecting first-degree relatives, and she is at risk for a BRCA related cancer. Plan: 1. Patient with grade 3 invasive ductal carcinoma of the left breast, by clinical evaluation stage IIA (T2, N0, M0), ER negative/MN positive and HER-2/santa positive. She had presented with a palpable mass in the left breast. The diagnosis was confirmed by ultrasound directed biopsy on 10/05/2020. She has indicated that she is not interested in breast conservation. As she had only borderline indications for neoadjuvant chemotherapy and with her management complicated by her underlying muscular dystrophy, she was recommended to proceed with mastectomy. She then underwent left simple mastectomy and left axillary sentinel lymph node biopsy on 11/05/2020. Her disease was pathologic stage IIA (pT2, pN0, M0). The tumor was again confirmed to be ER negative. She has advised that with a grade 3 primary tumor that is greater than 3 cm and is positive for overexpression of HER-2/santa, she will be at higher than average risk for recurrence for a node-negative breast cancer. She would potentially benefit with adjuvant chemotherapy, particularly with the tumor being HER-2/santa positive. However, she also will be at increased risk for treatment related toxicities, particularly with any taxane-based regimen. I had previously discussed her case with one of the breast cancer specialists at [facility]. Based on that discussion, she was recommended to undergo adjuvant therapy with trastuzumab emtansine, as it was felt to have the most potential benefit and least toxicity in her situation. She began adjuvant therapy with trastuzumab emtansine on 12/30/2020. It was administered at a standard dosage of 3.6 mg/kg by IV infusion. Side effects initially were limited to some hot flashes/sweating, mild nausea, eye irritation, and a mild malar skin eruption. and she was then able to continue treatment at 3-week intervals. She is now completed 5 cycles. At this point she does appear to be having more side effects, particularly fatigue and some neuropathy. In the setting of node-negative disease and worsening side effects, it will be best to limit her course of treatment to 6 cycles and minimize the risk of further toxicity. As such, she was given trastuzumab emtansine 3.6 mg/kg by IV infusion on 04/14/2021, with no plan to administer any further treatment. Patient presents today for follow-up. Her left foot pain has improved although she continues to have pain. DVT and fracture both been ruled out. She continues to have swelling in her bilateral lower extremities but it has also improved. She continues to complain of fatigue. This could be chemotherapy related but we will check a TSH and a vitamin B12. Further treatment recommendations for her breast cancer was discussed with Dr. Lemon. We will consider Herceptin 8 mg/kg loading dose and then continue Herceptin 6 mg/kg every 3 weeks for adjuvant therapy once approved by insurance. Patient should receive a total of 1 year of treatment including the 6 previous cycles that she received. We will also start anastrozole 1 mg daily for total of 5 years if tolerated by patient and if agreeable with patient. Patient to return to the clinic in 1 month or sooner once treatment is approved with CBC and CMP. 2. She has hypokalemia. She continues on a liquid oral potassium supplement at 10 mEq daily. Signed By: Karyn Adan N.Erica. <<Signature on File>>
== END 2021-06-09 12:56 | disposition home or self-care (01) ==
PROVIDERS: PCP Nurse Practitioner Family; Visit Provider Nurse Practitioner Family
DX: C50.912 Malignant neoplasm of unspecified site of left female breast (principal); Z17.0 Estrogen receptor positive status [ER+]; R60.0 Localized edema; R53.83 Other fatigue; E87.6 Hypokalemia
CPT/HCPCS: 36591; 80053; 82607; 84443; 85025; 99214

== ENCOUNTER 2021-07-08 08:58 | Oncology outpatient (recurring) (ONCR) | payer MEDICARE, MEDICAID, SELFPAY ==
[2020-11-25 09:35] VITALS: BP 148/69; BMI 20.9
--- NOTE | 2021-07-01 14:44 | PC.PHAR ---
07/01/21 - spoke with betzaida to confirm that patients upcoming infusion for trastuzumab is buy and bill (not white bag). rbto betzaida/aki
[2021-07-08 09:46] LABS: Basophils # 0.1 10^3/uL (0.0-0.1); Basophils % 1.2 %; Eosinophils # 0.2 10^3/uL (0.0-0.8); Eosinophils % 2.9 %; Hematocrit 39.6 % (37.0-47.0); Hemoglobin 12.6 g/dL (11.5-15.3); Lymphocytes # 1.5 10^3/uL (0.8-4.8); Lymphocytes % 25.4 %; Mean Corpuscular HGB Conc 31.8 g/dL (30.0-36.0); Mean Corpuscular Hemoglobin 27.5 pg (28.0-34.0); Mean Corpuscular Volume 86.5 fl (81-99); Monocytes # 0.5 10^3/uL (0.2-0.9); Monocytes % 8.3 %; Neutrophils # 3.58 10^3/uL (1.8-7.7); Nucleated Red Blood Cells % 0 %; Platelet Count 164 10^3/cmm (130-400); Red Blood Count 4.58 10^6/uL (4.1-5.3); White Blood Count 5.8 10^3/uL (4.0-10.0)
[2021-07-08 10:04] LABS: Alanine Aminotransferase 14 U/L (0-33); Albumin Level 3.7 g/dL (3.5-5.2); Alkaline Phosphatase 97 IU/L (35-105); Anion Gap 16.2 (5-19); Aspartate Amino Transferase 29 U/L (0-32); Blood Urea Nitrogen 17 mg/dL (8-23); Calcium 9.4 mg/dL (8.5-10.5); Carbon Dioxide 18 mmol/L (22-29); Chloride 110 mmol/L (98-107); Glucose 98 mg/dL (65-115); Osmolality Calculated 294 mOsm/kg (285-295); Potassium 3.2 mmol/L (3.5-5.1); Sodium 141 mmol/L (136-145); Total Bilirubin 2.5 mg/dL (0.15-1.2); Total Protein 7.7 g/dL (6.6-8.7)
[2021-07-08 10:07] LABS: Glomerular Filtration Rate 798.3 mL/min (90-130)
[2021-07-08 12:57] LABS: Free T4 Free Thyroxine 1.41 ng/dL (0.82-1.77); Thyroid Stimulating Hormone 4.85 uIU/mL (0.27-4.20)
== END 2021-07-27 23:59 | disposition home or self-care (01) ==
LOC: ONCMED 08:59
PROVIDERS: Nurse Practitioner Family; PCP Nurse Practitioner Family; Visit Provider Internal Medicine Medical Oncology
DX: C50.812 Malignant neoplasm of overlapping sites of left female breast (principal); Z17.0 Estrogen receptor positive status [ER+]; E03.9 Hypothyroidism, unspecified
CPT/HCPCS: 36591; 80053; 84439; 84443; 85025; 99214; 99999

== ENCOUNTER 2021-08-10 10:55 | Oncology outpatient (recurring) (ONCR) | payer MEDICARE, MEDICAID, SELFPAY ==
[2020-11-25 09:35] VITALS: BP 148/69; BMI 20.9
[2021-08-10 11:29] LABS: Basophils # 0.1 10^3/uL (0.0-0.1); Basophils % 0.9 %; Eosinophils # 0.2 10^3/uL (0.0-0.8); Hematocrit 38.7 % (37.0-47.0); Hemoglobin 12.9 g/dL (11.5-15.3); Lymphocytes # 1.4 10^3/uL (0.8-4.8); Lymphocytes % 18.4 %; Mean Corpuscular HGB Conc 33.3 g/dL (30.0-36.0); Mean Corpuscular Hemoglobin 28.2 pg (28.0-34.0); Mean Corpuscular Volume 84.5 fl (81-99); Mean Platelet Volume 10.7 fL (7.4-10.4); Monocytes # 0.6 10^3/uL (0.2-0.9); Monocytes % 8.2 %; Neutrophils # 5.41 10^3/uL (1.8-7.7); Neutrophils % 69.4 %; Nucleated Red Blood Cells % 0 %; Platelet Count 184 10^3/cmm (130-400); Red Blood Count 4.58 10^6/uL (4.1-5.3); Red Cell Distribution Width 16.9 % (12.1-15.1); White Blood Count 7.8 10^3/uL (4.0-10.0)
[2021-08-10 12:02] LABS: Alanine Aminotransferase 15 U/L (0-33); Albumin Level 3.7 g/dL (3.5-5.2); Alkaline Phosphatase 102 IU/L (35-105); Anion Gap 17.3 (5-19); Aspartate Amino Transferase 32 U/L (0-32); Blood Urea Nitrogen 12 mg/dL (8-23); Calcium 8.9 mg/dL (8.5-10.5); Carbon Dioxide 18 mmol/L (22-29); Chloride 111 mmol/L (98-107); Globulin 4.2 g/dL (1.3-4.6); Glomerular Filtration Rate 161.2 mL/min (90-130); Glucose 147 mg/dL (65-115); Osmolality Calculated 298 mOsm/kg (285-295); Potassium 3.3 mmol/L (3.5-5.1); Sodium 143 mmol/L (136-145); Total Bilirubin 2.1 mg/dL (0.15-1.2); Total Protein 7.9 g/dL (6.6-8.7)
[2021-08-10 12:39] LABS: CA 15-3 9.1 U/mL (0-25)
== END 2021-08-26 23:59 | disposition home or self-care (01) ==
LOC: ONCMED 10:56
PROVIDERS: Nurse Practitioner Family; PCP Nurse Practitioner Family; Visit Provider Internal Medicine Medical Oncology
DX: C50.812 Malignant neoplasm of overlapping sites of left female breast (principal)
CPT/HCPCS: 36591; 80053; 85025; 86300; 99214

== ENCOUNTER 2021-09-14 08:58 | Oncology outpatient (recurring) (ONCR) | payer MEDICARE, MEDICAID, SELFPAY ==
[2020-11-25 09:35] VITALS: BP 148/69; BMI 20.9
== END 2021-09-14 23:59 | disposition home or self-care (01) ==
PROVIDERS: PCP Nurse Practitioner Family; Visit Provider Internal Medicine Medical Oncology
DX: Z08 Encounter for follow-up examination after completed treatment for malignant neoplasm (principal); Z85.3 Personal history of malignant neoplasm of breast; Z90.12 Acquired absence of left breast and nipple; G71.09 Other specified muscular dystrophies; Z93.0 Tracheostomy status; Z92.21 Personal history of antineoplastic chemotherapy; Z79.52 Long term (current) use of systemic steroids
CPT/HCPCS: 96523; 99214

== ENCOUNTER 2021-10-05 13:16 | Outpatient (CLI) | payer MEDICARE, MEDICAID, SELFPAY ==
[2020-11-25 09:35] VITALS: BP 148/69; BMI 20.9
--- NOTE | 2021-10-05 13:30 | US_ITS ---
WS: [id number] ULTRASOUND BREAST RIGHT TECHNIQUE: Ultrasound right breast focused area of concern. Technically difficult examination perform ed in wheelchair. CLINICAL INFORMATION: breast cancer, followup of abnormal breast imaging COMPARISON: Outside imaging July 21, 2021 FINDINGS: At the 1:00 position 4 cm from the nipple is an irregular hypoechoic shadowing lesion taller than wid e measuring approximately 1.0 x 0.9 x 0.9 cm with additional adjacent shadowing hypoechoic lesion als o taller than wide 0.7 x 0.7 x 0.5 CM. These lesions are indeterminate but have a suspicious appearan ce and recommend ultrasound guided biopsy of both of these lesions. These lesions are relatively stab le compared to July 21, 2021 but have a suspicious appearance and neoplasm should be excluded with bio psy. Additional smaller previously described smoothly marginated ovoid lesions RIGHT breast measuring 0.5 x 0.3 x 1.0 cm and 0.5 x 0.25 x 0.5 cm RIGHT breast 12:00 position 2 cm from the nipple. These appear relatively stable since the outside examination but are indeterminant. Also recommend additional bio psy of one or both of these lesions. US/US breast RT complete [id number] IMPRESSION: Recommend ultrasound-guided biopsy of the 2 RIGHT breast lesions at the 1:00 position and at least one or both of the smaller ovoid lesions at the 12:00 position. BI-RADS 4 suspicious FOLLOW UP: Ultrasound-guided biopsy Notified Parmjit Lemon MD at 10/05/2021 3:51 PM.
[2021-10-05 15:06] LABS: Basophils # 0.1 10^3/uL (0.0-0.1); Eosinophils # 0.2 10^3/uL (0.0-0.8); Eosinophils % 2.5 %; Hemoglobin 12.7 g/dL (11.5-15.3); Lymphocytes # 1.9 10^3/uL (0.8-4.8); Lymphocytes % 28.2 %; Mean Corpuscular HGB Conc 31.8 g/dL (30.0-36.0); Mean Corpuscular Hemoglobin 28.2 pg (28.0-34.0); Mean Corpuscular Volume 88.7 fl (81-99); Mean Platelet Volume 10.6 fL (7.4-10.4); Monocytes # 0.6 10^3/uL (0.2-0.9); Monocytes % 8.3 %; Neutrophils # 4.05 10^3/uL (1.8-7.7); Neutrophils % 59.7 %; Nucleated Red Blood Cells % 0 %; Platelet Count 169 10^3/cmm (130-400); Red Blood Count 4.51 10^6/uL (4.1-5.3); Red Cell Distribution Width 16.5 % (12.1-15.1); White Blood Count 6.8 10^3/uL (4.0-10.0)
[2021-10-05 15:56] LABS: Alanine Aminotransferase 19 U/L (0-33); Albumin Level 3.7 g/dL (3.5-5.2); Alkaline Phosphatase 94 IU/L (35-105); Anion Gap 17.8 (5-19); Aspartate Amino Transferase 28 U/L (0-32); Blood Urea Nitrogen 12 mg/dL (8-23); Calcium 9.3 mg/dL (8.5-10.5); Carbon Dioxide 20 mmol/L (22-29); Chloride 111 mmol/L (98-107); Globulin 3.6 g/dL (1.3-4.6); Glucose 86 mg/dL (65-115); Osmolality Calculated 299 mOsm/kg (285-295); Potassium 3.8 mmol/L (3.5-5.1); Sodium 145 mmol/L (136-145); Thyroid Stimulating Hormone 3.49 uIU/mL (0.27-4.20); Total Bilirubin 2.4 mg/dL (0.15-1.2); Total Protein 7.3 g/dL (6.6-8.7)
[2021-10-05 16:03] LABS: Glomerular Filtration Rate 798.3 mL/min (90-130)
== END 2021-10-05 13:17 | disposition home or self-care (01) ==
LOC: RAD 13:17
PROVIDERS: PCP Nurse Practitioner Family; Visit Provider Internal Medicine Medical Oncology
DX: C50.812 Malignant neoplasm of overlapping sites of left female breast (principal); E03.9 Hypothyroidism, unspecified
CPT/HCPCS: 76641; 80053; 84443; 85025

== ENCOUNTER 2021-10-14 15:30 | Oncology outpatient (recurring) (ONCR) | payer MEDICARE, MEDICAID, SELFPAY ==
[2020-11-25 09:35] VITALS: BP 148/69; BMI 20.9
== END 2021-10-27 23:59 | disposition home or self-care (01) ==
PROVIDERS: PCP Nurse Practitioner Family; Visit Provider Internal Medicine Medical Oncology
DX: Z53.9 Procedure and treatment not carried out, unspecified reason (principal)
CPT/HCPCS: 36591; 76641; 80053; 84443; 85025

== ENCOUNTER 2021-11-08 15:34 | Oncology outpatient (recurring) (ONCR) | payer MEDICARE, MEDICAID, SELFPAY ==
[2020-11-25 09:35] VITALS: BP 148/69; BMI 20.9
== END 2021-11-26 23:59 | disposition home or self-care (01) ==
PROVIDERS: PCP Nurse Practitioner Family; Visit Provider Internal Medicine Medical Oncology
DX: Z45.2 Encounter for adjustment and management of vascular access device
CPT/HCPCS: 96523

== ENCOUNTER 2021-12-16 14:14 | Oncology outpatient (recurring) (ONCR) | payer MEDICARE, MEDICAID, SELFPAY ==
[2020-11-25 09:35] VITALS: BP 148/69; BMI 20.9
== END 2021-12-27 23:59 | disposition home or self-care (01) ==
PROVIDERS: PCP Nurse Practitioner Family; Visit Provider Internal Medicine Medical Oncology
DX: C50.812 Malignant neoplasm of overlapping sites of left female breast (principal); Z45.2 Encounter for adjustment and management of vascular access device
CPT/HCPCS: 96523

== ENCOUNTER 2022-01-17 13:05 | Oncology outpatient (recurring) (ONCR) | payer MEDICARE, MEDICAID, SELFPAY ==
[2020-11-25 09:35] VITALS: BP 148/69; BMI 20.9
[2022-01-17 13:40] LABS: Basophils # 0.1 10^3/uL (0.0-0.1); Basophils % 0.8 %; Eosinophils # 0.2 10^3/uL (0.0-0.8); Eosinophils % 2.9 %; Hematocrit 36.7 % (37.0-47.0); Hemoglobin 12.3 g/dL (11.5-15.3); Lymphocytes # 1.7 10^3/uL (0.8-4.8); Lymphocytes % 24.1 %; Mean Corpuscular HGB Conc 33.5 g/dL (30.0-36.0); Mean Corpuscular Hemoglobin 30.1 pg (28.0-34.0); Mean Corpuscular Volume 89.7 fl (81-99); Mean Platelet Volume 10.6 fL (7.4-10.4); Monocytes # 0.6 10^3/uL (0.2-0.9); Monocytes % 8.4 %; Neutrophils # 4.58 10^3/uL (1.8-7.7); Neutrophils % 63.5 %; Nucleated Red Blood Cells % 0 %; Platelet Count 169 10^3/cmm (130-400); Red Blood Count 4.09 10^6/uL (4.1-5.3); Red Cell Distribution Width 14.8 % (12.1-15.1); White Blood Count 7.2 10^3/uL (4.0-10.0)
[2022-01-17 14:13] LABS: Alanine Aminotransferase 13 U/L (0-33); Albumin Level 3.5 g/dL (3.5-5.2); Alkaline Phosphatase 109 U/L (35-105); Anion Gap 14.5 (5-19); Aspartate Amino Transferase 18 U/L (0-32); Blood Urea Nitrogen 12 mg/dL (8-23); Calcium 9.2 mg/dL (8.5-10.5); Carbon Dioxide 20 mmol/L (22-29); Chloride 110 mmol/L (98-107); Globulin 3.8 g/dL (1.3-4.6); Glomerular Filtration Rate 124.6 mL/min (90-130); Glucose 106 mg/dL (65-115); Osmolality Calculated 292 mOsm/kg (285-295); Potassium 3.5 mmol/L (3.5-5.1); Sodium 141 mmol/L (136-145); Thyroid Stimulating Hormone 4.18 uIU/mL (0.27-4.20); Total Bilirubin 1.7 mg/dL (0.15-1.2); Total Protein 7.3 g/dL (6.6-8.7)
== END 2022-01-26 23:59 | disposition home or self-care (01) ==
PROVIDERS: PCP Nurse Practitioner Family; Visit Provider Internal Medicine Medical Oncology
DX: Z08 Encounter for follow-up examination after completed treatment for malignant neoplasm; Z85.3 Personal history of malignant neoplasm of breast; F41.9 Anxiety disorder, unspecified; Z79.899 Other long term (current) drug therapy; Z92.3 Personal history of irradiation; Z92.21 Personal history of antineoplastic chemotherapy
CPT/HCPCS: 36591; 80053; 84443; 85025; 99214

== ENCOUNTER 2022-04-20 12:13 | Oncology outpatient (recurring) (ONCR) | payer MEDICARE, MEDICAID, SELFPAY ==
[2020-11-25 09:35] VITALS: BP 148/69; BMI 20.9
[2022-03-08 16:02] VITALS: BP 148/69; BMI 20.9
[2022-04-20 13:34] LABS: Basophils # 0.1 10^3/uL (0.0-0.1); Eosinophils # 0.2 10^3/uL (0.0-0.8); Hematocrit 36.2 % (37.0-47.0); Lymphocytes # 1.4 10^3/uL (0.8-4.8); Lymphocytes % 23.5 %; Mean Corpuscular HGB Conc 33.1 g/dL (30.0-36.0); Mean Corpuscular Hemoglobin 29.8 pg (28.0-34.0); Mean Corpuscular Volume 89.8 fl (81-99); Mean Platelet Volume 10.6 fL (7.4-10.4); Monocytes # 0.6 10^3/uL (0.2-0.9); Monocytes % 9.5 %; Neutrophils # 3.75 10^3/uL (1.8-7.7); Neutrophils % 62.7 %; Nucleated Red Blood Cells % 0 %; Platelet Count 198 10^3/cmm (130-400); Red Blood Count 4.03 10^6/uL (4.1-5.3); Red Cell Distribution Width 15.7 % (12.1-15.1)
[2022-04-20 13:53] LABS: Alanine Aminotransferase 10 U/L (0-33); Albumin Level 3.6 g/dL (3.5-5.2); Alkaline Phosphatase 107 U/L (35-105); Aspartate Amino Transferase 20 U/L (0-32); Blood Urea Nitrogen 12 mg/dL (8-23); Carbon Dioxide 18 mmol/L (22-29); Chloride 110 mmol/L (98-107); Globulin 3.8 g/dL (1.3-4.6); Glomerular Filtration Rate 124.2 mL/min (90-130); Glucose 85 mg/dL (65-115); Osmolality Calculated 293 mOsm/kg (285-295); Sodium 142 mmol/L (136-145); Total Bilirubin 2.1 mg/dL (0.15-1.2); Total Protein 7.4 g/dL (6.6-8.7)
[2022-04-20 15:29] LABS: Magnesium 2.1 mg/dL (1.7-2.3)
== END 2022-04-26 23:59 | disposition home or self-care (01) ==
PROVIDERS: Nurse Practitioner; PCP Nurse Practitioner Family; Visit Provider Internal Medicine Medical Oncology
DX: Z08 Encounter for follow-up examination after completed treatment for malignant neoplasm (principal); Z85.3 Personal history of malignant neoplasm of breast; F41.9 Anxiety disorder, unspecified; Z79.899 Other long term (current) drug therapy; Z92.3 Personal history of irradiation; Z92.21 Personal history of antineoplastic chemotherapy; E87.6 Hypokalemia
CPT/HCPCS: 36591; 80053; 83735; 85025; 99214